=== PATIENT | male | born 1935 | race Caucasian/White ===

== ENCOUNTER 2019-10-03 06:57 | Outpatient (CLI) | payer OTHER, SELFPAY ==
[2019-10-03 07:52] LABS: Basophils Percent Auto 0.4 % (0.2-1.2); Eosinophils Absolute Auto 0.2 K/mm3 (0-0.3); Eosinophils Percent Auto 1.9 % (0-4.4); Hematocrit 26.3 % (42.0-52.0); Hemoglobin 8.5 g/dL (14.0-18.0); Immature Granulocyte Percent A 1.3 % (0-0.5); Immature Reticulocyte Fraction 28.2 % (3.0-15.9); Lymphocytes Absolute Auto 6.13 K/mm3 (0.9-3.2); Lymphocytes Percent Auto 78.9 % (18.3-44.2); Mean Corpuscular HGB Conc 32.3 g/dl (32-36); Mean Corpuscular Hemoglobin 38.8 pg (26-34); Mean Corpuscular Volume 120.1 fl (80-100); Mean Platelet Volume 11.4 fl (7.4-10.4); Monocytes Absolute Auto 0.5 K/mm3 (0.1-0.6); Monocytes Percent Auto 6.9 % (2.6-8.5); Neutrophils Absolute Auto 0.8 K/mm3 (1.3-6.7); Neutrophils Percent Auto 10.6 % (45.5-73.1); Platelet Count Result 136 k/mm3 (150-375); Red Blood Count 2.19 M/mm3 (4.6-6.20); Red Cell Distribution Width 17.9 % (11.5-14.5); Reticulocyte Hemoglobin Conten 41.3 pg (28.2-35.7); Reticulocytes Absolute 0.09 B/L (32.2-175.7); White Blood Count 7.8 K/mm3 (4.5-10.0)
[2019-10-03 08:14] LABS: Alanine Aminotransferase 13 U/L (4-50); Albumin Level 3.8 g/dL (3.5-5.1); Alkaline Phosphatase 75 U/L (38-126); Aspartate Amino Transferase 19 U/L (17-59); Bilirubin,Total 0.5 mg/dL (0.2-1.3); Blood Urea Nitrogen 13 mg/dL (9-20); Calcium 8.7 mg/dL (8.4-10.2); Carbon Dioxide 25 mmol/L (22-30); Chloride 105 mmol/L (98-107); Estimated Glomerular Filt Rate > 60; Glucose 149 mg/dL (75-110); Lactate Dehydrogenase 478 U/L (313-618); Potassium 4.2 mmol/L (3.4-5.0); Sodium 137 mmol/L (137-145)
[2019-10-03 08:45] LABS: Macrocytosis 1+ (NORMAL); Platelet Estimate Adequate (Adequate); Poikilocytosis 1+ (NORMAL)
[2019-10-03 08:46] LABS: Ovalocytes 1+ (NORMAL)
[2019-10-03 09:18] LABS: Folic Acid 19.8 ng/mL (2.76->20)
[2019-10-03 10:26] LABS: Iron 99 ug/dL (49-181); Percent Iron Saturation 34 % (20-50)
== END 2019-10-03 06:58 | disposition home or self-care (01) ==
PROVIDERS: PCP Internal Medicine; Visit Provider Internal Medicine
DX: C50.021 Malignant neoplasm of nipple and areola, right male breast (principal); E53.8 Deficiency of other specified B group vitamins
CPT/HCPCS: 36415; 80053; 82607; 82728; 82746; 83540; 83550; 83615; 85025; 85046

== ENCOUNTER 2019-11-14 06:59 | Outpatient (CLI) | payer OTHER, SELFPAY ==
[2019-11-14 07:37] LABS: Alanine Aminotransferase 12 U/L (4-50); Albumin Level 4.1 g/dL (3.5-5.1); Alkaline Phosphatase 71 U/L (38-126); Aspartate Amino Transferase 21 U/L (17-59); Bilirubin,Total 0.5 mg/dL (0.2-1.3); Blood Urea Nitrogen 17 mg/dL (9-20); Calcium 8.8 mg/dL (8.4-10.2); Carbon Dioxide 28 mmol/L (22-30); Chloride 102 mmol/L (98-107); Estimated Glomerular Filt Rate > 60; Glucose 251 mg/dL (75-110); Lactate Dehydrogenase 502 U/L (313-618); Potassium 4.5 mmol/L (3.4-5.0); Sodium 137 mmol/L (137-145)
[2019-11-14 08:15] LABS: Basophils Percent Auto 0.2 % (0.2-1.2); Eosinophils Absolute Auto 0.2 K/mm3 (0-0.3); Eosinophils Percent Auto 2.4 % (0-4.4); Hematocrit 25.6 % (42.0-52.0); Immature Granulocyte Absolute 0.15 K/mm3 (0.00-0.031); Immature Granulocyte Percent A 1.6 % (0-0.5); Lymphocytes Absolute Auto 7.15 K/mm3 (0.9-3.2); Lymphocytes Percent Auto 75.6 % (18.3-44.2); Mean Corpuscular HGB Conc 31.3 g/dl (32-36); Mean Corpuscular Hemoglobin 38.8 pg (26-34); Mean Corpuscular Volume 124.3 fl (80-100); Mean Platelet Volume 12.1 fl (7.4-10.4); Monocytes Absolute Auto 0.8 K/mm3 (0.1-0.6); Monocytes Percent Auto 8.2 % (2.6-8.5); Neutrophils Absolute Auto 1.1 K/mm3 (1.3-6.7); Platelet Count Result 151 k/mm3 (150-375); Red Blood Count 2.06 M/mm3 (4.6-6.20); Red Cell Distribution Width 18.5 % (11.5-14.5); White Blood Count 9.5 K/mm3 (4.5-10.0)
== END 2019-11-14 07:00 | disposition home or self-care (01) ==
PROVIDERS: PCP Internal Medicine; Visit Provider Internal Medicine
DX: D50.8 Other iron deficiency anemias (principal); R23.2 Flushing; C82.34 Follicular lymphoma grade IIIa, lymph nodes of axilla and upper limb
CPT/HCPCS: 36415; 80053; 83615; 85025

== ENCOUNTER 2019-12-27 13:32 | Outpatient (CLI) | payer OTHER, SELFPAY ==
--- NOTE | ~2019-12-27 | US_ITS ---
EXAMINATION: US venous doppler [facility] DATE: 12/27/2019 14:08 INDICATION: Lower limb swelling TECHNIQUE: Grayscale ultrasound images without and with compression and Doppler ultrasound images of the bilateral lower extremity veins were obtained. COMPARISON: None. FINDINGS: The visualized portions of right common femoral vein, profunda (deep) femoral vein, femoral vein, pop liteal vein, posterior tibial veins, peroneal veins, gastrocnemius vein and greater saphenous vein ou tflow are patent. The visualized portions of left common femoral vein, profunda femoral vein, femoral vein, popliteal v ein, posterior tibial veins, peroneal veins, gastrocnemius vein and greater saphenous vein outflow ar e patent. IMPRESSION: 1. No deep venous thrombosis in either lower limb. Reviewed, dictated and finalized at location A.
== END 2019-12-27 13:33 | disposition home or self-care (01) ==
PROVIDERS: PCP Internal Medicine; Visit Provider Internal Medicine
DX: R60.0 Localized edema (principal)
CPT/HCPCS: 93970

== ENCOUNTER 2020-04-21 06:50 | Inpatient (IN) | payer OTHER, SELFPAY ==
[2020-04-21] VITALS (15 sets, daily range): BP systolic 110–134; BP diastolic 52–77; PULSE 66–91; RESP 10–20; TEMP 36.1–37.1; O2SAT 93–100; BMI 26.2
--- NOTE | ~2020-04-21 | XR_ITS ---
EXAMINATION: XR surgery orthopedic DATE: 04/21/2020 11:21 INDICATION: Right wrist ORIF TECHNIQUE: 3 fluoroscopic images of the right wrist were obtained during procedure performed by Dr. Jeffrey fernandez. Radiologist was not present for the imaging or procedure. The amount of fluoroscopy time used during this procedure was 1.2 minutes. COMPARISON: None. FINDINGS: Significantly improved alignment post open reduction and internal fixation of a comminuted likely intra-articular fracture of the distal right radius which is now in near-anatomic alignment wi th volar T plate and screw fixation. The fracture of the distal ulnar metaphysis has also been reduce d to near-anatomic alignment and is fixed with a percutaneous K wire. No new fractures identified. IMPRESSION: 1. Fluoroscopy utilized during open reduction and internal fixation of distal right radial and ulnar fractures which are now in near-anatomic alignment. See procedure note for further detail. Reviewed, dictated and finalized at location A. IMPRESSION: 1. Fluoroscopy utilized during open reduction and internal fixation of distal r ight radial and ulnar fractures which are now in near-anatomic alignment. See p rocedure note for further detail.
--- NOTE | ~2020-04-21 | CT_ITS ---
EXAMINATION: CT brain wo [facility] EXAM DATE: 04/21/2020 07:36 INDICATION: Fall, head injury. TECHNIQUE: Spiral CT of the head was performed without contrast. Axial, coronal and sagittal images were reviewed. The dose-length product (DLP) for this examination was 605.33 mGy-cm. The exposure w as tailored according to patient size, and iterative reconstruction (ASIR) was used as additional dos e reduction technique. There is no prior study for comparison. FINDINGS: There is no acute intraparenchymal hemorrhage. No evidence of intraparenchymal brain mass lesion. No evidence of acute infarction. Please note that initial head CT has limited sensitivity f or small or acute infarctions. There is mild periventricular and subcortical hypodensity, nonspecific but probably related to small vessel ischemic disease. There is moderate prominence of the sulci a nd ventricles related to cerebral atrophy. There is intracranial carotid arteriosclerosis. There a re no extra-axial collections. There is no mass effect or midline shift. Patient has had bilateral ocular lens surgery. Soft tissue is unremarkable. The visualized sinuses and mastoid air cells are well aerated. IMPRESSION: 1. No acute intracranial findings. 2. Chronic age related findings. Reviewed, dictated and finalized at location A.
--- NOTE | ~2020-04-21 | XR_ITS ---
EXAMINATION: XR wrist RT min 3V EXAM DATE: 04/21/2020 07:49 INDICATION: Initial encounter following injury, with pain of the right wrist. TECHNIQUE: Right wrist frontal and lateral projections obtained and reviewed. There is no prior jeanette dy for comparison. FINDINGS: There are acute closed posttraumatic fractures of the right radial and ulnar metaphyses wit h complete posterior displacement and about 45 degrees of dorsal angulation. Mild comminution at the radial fracture site. There is overlying soft tissue swelling. IMPRESSION: Acute right radial and ulnar distal metaphyseal fractures, posterior displacement and an gulation. Reviewed, dictated and finalized at location A. IMPRESSION: Acute right radial and ulnar distal metaphyseal fractures, posteri or displacement and angulation.
--- NOTE | ~2020-04-21 | XR_ITS ---
EXAMINATION: XR chest 1V EXAM DATE: 04/21/2020 07:49 INDICATION: Fall. TECHNIQUE: Portable AP frontal chest x-ray was obtained. Comparison is made to prior examination from 06/11/2015. FINDINGS: Linear left basilar opacity appearance most consistent with atelectasis. No confluent conso lidation, pneumothorax or pleural effusion suspected. There is mild cardiomegaly. Previously seen Jami mo-Port has been removed. The bones are osteopenic. There are bony degenerative changes.. IMPRESSION: 1. Linear left basilar subsegmental atelectasis. Reviewed, dictated and finalized at location A.
--- NOTE | 2020-04-21 07:11 | ED.GENADULT ---
HPI - General Adult General Chief complaint: Extremity Injury, Upper Stated complaint: wrist injury Time Seen by Provider: 04/21/20 07:02 Source: RN notes reviewed History of Present Illness HPI narrative: Patient presents emergency department from home for a fall. Patient states he gotten up and had tripped and fell this morning. He states he had landed on his right wrist with pain in his right wrist he also states he struck his head. He denies any loss of consciousness. Patient notes deformity and pain to the right wrist. States he did take 2 Motrin for the pain this morning. He denies any fevers or chills vision changes numbness or tingling in the extremities chest pain shortness of breath or any other symptoms denies any blood thinner use Related Data Home Medications Medication Instructions Recorded Confirmed blood sugar diagnostic #10 each 07/05/19 finasteride 5 mg tablet 5 mg PO DAILY 07/05/19 04/21/20 pregabalin 150 mg capsule 150 mg PO TID 07/05/19 04/21/20 anastrozole 1 mg PO DAILY 04/21/20 04/21/20 cyanocobalamin (vitamin B-12) 1,000 mcg PO DAILY 04/21/20 04/21/20 [Vitamin B-12] Allergies Allergy/AdvReac Type Severity Reaction Status Date / Time No Known Allergies Allergy Verified 04/21/20 07:10 Review of Systems Review of Systems: Narrative: Gen.: Denies fevers or chills Eyes: Denies eye pain or visual change ENT: Denies congestion Respiratory: Denies shortness of breath or cough CV: Denies chest pain or palpitations GI: Denies abdominal pain nausea, emesis or diarrhea Musculoskeletal: See HPI Neuro: Denies numbness, tingling, weakness or focal weakness Skin: Denies rash Except as documented, all other systems reviewed and negative PMF Past Medical History Medical History Hyperlipidemia, unspecified Non-Hodgkin's lymphoma in adult Type 2 diabetes mellitus without complication Surgical History Surgical History S/P colonoscopic polypectomy Family History Family History Sibling Patient's sister is in good health Father Family history of malignant neoplasm Family history of diabetes mellitus in first degree relative Patient's father is Diabetes mellitus Mother Family history of malignant neoplasm Patient's mother is Social History Social History Smoking status: Never smoker Alcohol intake: never Gender identity (if verbalized by the patient): Male Exam Narrative: Exam Narrative: APPEARANCE: No acute distress, nontoxic, resting in bed EYES: EOMI, Marta HEENT: Normocephalic, atraumatic, OMM : Supple, nontender palpation RESPIRATORY: No respiratory distress Clear to auscultation bilaterally with no rhonchi wheezing or rales. CARDIOVASCULAR: Regular rate and rhythm without murmurs rubs or gallops. ABDOMINAL: Soft, nontender, nondistended, no rebound or guarding MUSCULOSKELETAl: Moves all extremities. The right wrist is diffusely tender to palpation with deformity radial pulse 2+, no tenderness of the right elbow or shoulder, 2 cm laceration over the palmar aspect with mild venous bleeding mild fat expulsion and the wound is deep with bone fragments seen NEURO: Awake and alert. Following commands, speech normal, no focal deficits SKIN:: Warm, dry. No rashes lesions or abrasions PSYCHIATRIC: Normal affect/mood, Course Course Emergency Course: Discussed with Dr. Diaz of orthopedic surgery recommends patient receive Ancef and gentamicin at this time will take patient to the OR for washout recommends temporary splint be placed This with patient and family plan for OR in agreement at this time Vital Signs Vital signs: Vital Signs Temperature 97 F L 04/21/20 06:51 Pulse Rate 91 04/21/20 06:51 Respiratory Rate 16
[2020-04-21] MEDS: MORPHINE SULFATE (*CRX) 2 MG/ML INJ IV PUSH (07:22)
[2020-04-21 07:36] LABS: Basophils Percent Auto 0.5 % (0.2-1.2); Eosinophils Absolute Auto 0.1 K/mm3 (0-0.3); Eosinophils Percent Auto 2.1 % (0-4.4); Hematocrit 22.9 % (42.0-52.0); Hemoglobin 7.4 g/dL (14.0-18.0); Immature Granulocyte Absolute 0.25 K/mm3 (0.00-0.031); Lymphocytes Absolute Auto 3.64 K/mm3 (0.9-3.2); Lymphocytes Percent Auto 57.9 % (18.3-44.2); Mean Corpuscular HGB Conc 32.3 g/dl (32-36); Mean Corpuscular Hemoglobin 39.4 pg (26-34); Mean Corpuscular Volume 121.8 fl (80-100); Mean Platelet Volume 12.2 fl (7.4-10.4); Monocytes Absolute Auto 0.6 K/mm3 (0.1-0.6); Monocytes Percent Auto 9.1 % (2.6-8.5); Neutrophils Absolute Auto 1.7 K/mm3 (1.3-6.7); Neutrophils Percent Auto 26.4 % (45.5-73.1); Platelet Count Result 143 k/mm3 (150-375); Red Blood Count 1.88 M/mm3 (4.6-6.20); Red Cell Distribution Width 19.5 % (11.5-14.5); White Blood Count 6.3 K/mm3 (4.5-10.0)
[2020-04-21 07:43] LABS: Alanine Aminotransferase 12 U/L (4-50); Albumin Level 4.2 g/dL (3.5-5.1); Alkaline Phosphatase 65 U/L (38-126); Anion Gap 8 mmol/L (8-16); Aspartate Amino Transferase 34 U/L (17-59); Bilirubin,Total 0.8 mg/dL (0.2-1.3); Blood Urea Nitrogen 16 mg/dL (9-20); Calcium 8.8 mg/dL (8.4-10.2); Carbon Dioxide 29 mmol/L (22-30); Chloride 102 mmol/L (98-107); Estimated Glomerular Filt Rate > 60; Glucose 210 mg/dL (75-110); Potassium 4.5 mmol/L (3.4-5.0); Sodium 139 mmol/L (137-145)
[2020-04-21 07:47] LABS: Prothrombin Time 13.2 Seconds (11.1-14.7)
[2020-04-21 07:48] LABS: Partial Thromboplastin Time 29.6 SECONDS (22.3-36.8)
[2020-04-21] MEDS: MORPHINE SULFATE (*CRX) 4 MG/ML INJ 2 MG IV PUSH (08:24)
[2020-04-21] MEDS: SODIUM CHLORIDE 0.9% IV 1,000 ML 999 ML IV CONT (08:25)
[2020-04-21] MEDS: ceFAZolin 2 GM/D5W 50 ML 2 GM/50 ML BAG IVPB (08:37)
--- NOTE | 2020-04-21 09:07 | WPDANESEPP ---
Anes - Eval Pre Procedure Procedure: Operation Date: 04/21/20 09:00 Proposed Procedures p ORIF Wrist Radius Ulna Fracture(Right) - Kaleb Diaz MD Date/Time: 04/21/20 09:07 Pre Op Diagnosis: open distal radius fx Patient Data Age: 84 Gender: M Height: Weight: 80 kg Last Vital Signs Temp 36.1 C L 04/21/20 06:51 Pulse 66 04/21/20 08:31 Resp 20 04/21/20 08:31 BP 134/77 04/21/20 08:31 Pulse Ox 100 04/21/20 08:31 Allergies Allergy/AdvReac Type Severity Reaction Status Date / Time No Known Allergies Allergy Verified 04/21/20 07:10 Home Medications Medication Instructions Recorded Confirmed Type blood sugar diagnostic #10 each 07/05/19 History finasteride 5 mg tablet 5 mg PO DAILY 07/05/19 04/21/20 History pregabalin 150 mg capsule 150 mg PO TID 07/05/19 04/21/20 History pravastatin 40 mg tablet 40 mg PO DAILY #90 tablet 10/28/19 04/21/20 Rx blood sugar diagnostic See Rx Instructions .ROUTE 01/12/20 04/21/20 Rx .COMPLEX #100 strip glipizide 5 mg tablet 5 mg PO DAILY #90 tablet 01/30/20 04/21/20 Rx lancets See Rx Instructions .ROUTE 01/30/20 04/21/20 Rx .COMPLEX #100 each metformin 500 mg tablet 1,000 mg PO BID #360 tablet 01/30/20 04/21/20 Rx hydrocodone 10 mg-acetaminophen 1 tablet PO QID PRN #120 tablet 04/19/20 04/21/20 Rx 325 mg tablet anastrozole 1 mg PO DAILY 04/21/20 04/21/20 History cyanocobalamin (vitamin B-12) 1,000 mcg PO DAILY 04/21/20 04/21/20 History [Vitamin B-12] Laboratory Tests 04/21/20 04/21/20 04/21/20 07:17 07:17 07:17 WBC 6.3 K/mm3 K/mm3 (4.5-10.0) RBC 1.88 M/mm3 L M/mm3 (4.6-6.20) Hgb 7.4 g/dL L g/dL (14.0-18.0) Hct 22.9 % L % (42.0-52.0) MCV 121.8 fl H fl (80-100) MCH 39.4 pg H pg (26-34) MCHC 32.3 g/dl g/dl (32-36) RDW 19.5 % H % (11.5-14.5) Plt Count 143 k/mm3 L k/mm3 (150-375) MPV 12.2 fl H fl (7.4-10.4) Immature Gran % (Auto) 4.0 % H % (0-0.5) Neut % (Auto) 26.4 % L % (45.5-73.1) Lymph % (Auto) 57.9 % H % (18.3-44.2) [place] % (Auto) 9.1 % H % (2.6-8.5) Eos % (Auto) 2.1 % % (0-4.4) Baso % (Auto) 0.5 % % (0.2-1.2) Lymph # (Auto) 3.64 K/mm3 H K/mm3 (0.9-3.2) [place] # (Auto) 0.6 K/mm3 K/mm3 (0.1-0.6) Eos # (Auto) 0.1 K/mm3 K/mm3 (0-0.3) Baso # (Auto) 0.0 K/mm3 K/mm3 (0.0-0.1) Abs Immat Gran (auto) 0.25 K/mm3 H K/mm3 (0.00-0.031) Absolute Neuts (auto) 1.7 K/mm3 K/mm3 (1.3-6.7) Absolute Nucleated RBC 0.0 K/mm3 K/mm3 (0.0-0.012) Nucleated RBC % 0.0 % % (0.0-0.2) PT 13.2 Seconds Seconds (11.1-14.7) INR 1.0 APTT 29.6 SECONDS SECONDS (22.3-36.8) Sodium 139 mmol/L mmol/L (137-145) Potassium 4.5 mmol/L mmol/L (3.4-5.0) Chloride 102 mmol/L mmol/L (98-107) Carbon Dioxide 29 mmol/L mmol/L (22-30) Anion Gap 8 mmol/L mmol/L (8-16) BUN 16 mg/dL mg/dL (9-20) Creatinine 0.50 mg/dL L mg/dL (0.7-1.3) Estim Creat Clear Calc Not Reportable Estimated GFR > 60 (59 - ) Glucose 210 mg/dL H mg/dL (75-110) Calcium 8.8 mg/dL mg/dL (8.4-10.2) Total Bilirubin 0.8 mg/dL mg/dL (0.2-1.3) AST 34 U/L U/L (17-59) ALT 12 U/L U/L (4-50) Alkaline Phosphatase 65 U/L U/L (38-126) Total Protein 6.0 g/dL L g/dL (6.3-8.2) Albumin 4.2 g/dL g/dL (3.5-5.1) Blood Type Antibody Screen 04/21/20 07:17 WBC RBC Hgb Hct MCV MCH MCHC RDW Plt Count MPV Immature Gran % (Auto) Neut % (Auto) Lymph % (Auto) [place] % (Auto) Eos % (Auto) Baso % (Auto) L
[2020-04-21] MEDS: GENTAMICIN SULFATE INJ 160 MG in DEXTROSE 5% 100 ML 100 MG IVPB (09:23)
--- NOTE | 2020-04-21 09:28 | PM.CNOR ---
Assessment and Plan Assessment and plan (1) Open fracture of forearm, type I or II: Qualifiers: Encounter type: initial encounter Laterality: right Qualified Code(s): S52.91XB - Unspecified fracture of right forearm, initial encounter for open fracture type I or II Code(s): S52.90XB - Unspecified fracture of unspecified forearm, initial encounter for open fracture type I or II Status: Acute Assessment and Plan: Patient presented to the emergency room with family after a fall and right distal forearm/wrist injury. Noted to have open fracture of the distal radius and ulna with 100% displacement. Hand and fingers neurovascularly intact. Patient given antibiotics. Head CT done for history of head trauma. Patient now brought urgently to the operating room for treatment of his open fracture. Injury occurred approximately 3 hours ago. Operative and non operative treatment options with the risks, benefits and alternatives of treatment discussed in detail with the patient. He is alert and oriented. He answers questions and ask questions appropriately. He verbalizes understanding and wishes to proceed with treatment for his right wrist. He will need to be admitted afterward for a course of intravenous antibiotics and for further stabilization and medical management. Discussed nonoperative and operative treatment options with the patient. Risks and benefits of each as well as alternatives were reviewed. All of the patient's questions were answered. The risks of surgery reviewed including but not limited to: Neurovascular damage, wound complication, infection, blood clot, pulmonary embolus, stroke, myocardial infarction, and anesthetic risks up to and including . Continued pain and possible dysfunction were explained. Specific risks of the procedure including later recurrence of deformity. No guarantees were offered. If hardware used, discussed risk of failure/ breakage and possible need for removal. If complications occur, the patient understands the need for further treatment, possible further surgery. Patient verbalizes understanding and wishes to proceed. PLAN: Right wrist debridement of open fracture, reduction and internal fixation. (2) Type 2 diabetes mellitus without complication: Qualifiers: Diabetes mellitus termite helper insulin use: without termite helper use Qualified Code(s): E11.9 - Type 2 diabetes mellitus without complications Code(s): E11.9 - Type 2 diabetes mellitus without complications Status: Acute (3) Non-Hodgkin's lymphoma in adult: Code(s): C85.90 - Non-Hodgkin lymphoma, unspecified, unspecified site Status: Acute History of Present Illness HPI Consult date: 04/21/20 Requesting physician: Fabio Nesbitt DO Consult reason: fracture Chief complaint: open distal radius fx Narrative: 84-year-old gentleman was at home this morning getting up and getting dressed when he lost his balance and fell with his right outstretched hand. Noted obvious deformity and bleeding of the wrist. Also trauma to the head but no loss of consciousness. Denies neck or back pain or injury. Complains of right wrist pain. Noted to have open fracture in emergency room. He is now brought urgently to the operating room for further treatment. He received intravenous Ancef in the emergency room, 2 g. A sterile dressing and splint was applied. Review of Systems Constitutional: Constitutional: Denies fever(s) Eyes: Eyes: Denies blurry vision ENT: Reports Normal hearing present Cardiovascular: Cardiovascular: Denies chest pain and Denies dyspnea Respiratory: Respiratory: Denies dyspnea and Denies wheezing Gastrointestinal: Gastrointestinal: Denies abdominal pain Genitourinary: Genitourinary: Denies urinary urgency Musculoskeletal: Musculoskeletal: Reports as per HPI and Denies numbness Integumentary/Breasts: Skin/Breast: Denies changing lesions and Denies sores Neurolog
--- NOTE | 2020-04-21 09:29 | P.PNAN_ITS ---
Anes - Eval Final PreProcedure Day of Procedure 04/21/20 09:29 Patient weight: overweight Heart: regular rate and rhythm Lungs: clear to auscultation and normal air movement Airway: Mallampati scale class II Neurological: alert and oriented Last oral intake: >/= 8 hours ASA classification: II Emergent: yes Anesthetic plan: proceed Anesthesia type and monitoring: general Informed Consent: The patient's anesthetic plan and its attendant risks and b enefits were discussed with the patient/family/POA. Questions were solicited and answers provided to the satisfaction of the patient/family/POA.
--- NOTE | 2020-04-21 09:36 | WPDHPUPDATE1 ---
History and Physical Update Update Date/Time: 04/21/20 09:36 History and Physical has been reviewed, including an updated exam of the patient. There are NO changes in the patient's condition. Risks, benefits, and alternatives have been discussed and questions answered. Patient agrees to proceed with procedure. Proceeding emergently to the operating room for treatment of right open forearm/wrist fracture.
[2020-04-21] MEDS: LACTATED RINGERS 1,000 ML 30 ML IV CONT (09:45)
--- NOTE | 2020-04-21 11:30 | SUR.OPER ---
Ebl=20ml
[2020-04-21 11:45] LABS: Glucose Point of Care 178 (65-105)
--- NOTE | 2020-04-21 11:53 | PM.PROC ---
Procedure Note - Detailed Date of procedure: 04/21/20 Pre-op diagnosis: open distal radius fx Right open distal radius fracture Post-op diagnosis: same Procedure performed: debridement of open fracture, open reduction internal fixation right distal radius fracture including fixation of more than 3 fragments. Description of procedure: Indications: Patient is a 84-year-old man who fell onto right outstretched hand and sustained a Grade 2A open distal radius and ulna fracture with intra-articular extension and comminution. Fracture has displacement and angulation, unacceptable alignment. The patient presents for emergent operative treatment. Full discussion of risks, benefits and alternatives had with the patient. Patient verbalized understanding and wishes to proceed. What was done: After informed consent the operative extremity was marked in the preoperative holding area. Patient received intravenous antibiotics. Patient taken to the operating room where they underwent general anesthesia. Positioned supine on operating table. Time-out performed confirming the patient, patient's site of surgery and the plan. Right upper extremity prepped and draped in the usual sterile surgical fashion using a Betadine prep solution. Hand and wrist exsanguinated and arm tourniquet inflated to 225 mmHg. the open skin laceration was over the volar ulnar side measured 1.8 cm x 1 cm. There was exposed flexor carpi ulnaris tendon. No other gross contamination noted. No pulsatile bleeding. Fifteen blade knife and pickups used to remove any loose 3rd vitalized tissue and any debris from the wound. Wound then thoroughly irrigated with solution. Subcutaneous tissue repaired with 3 0 Monocryl interrupted suture and skin repaired with 4 nylon interrupted suture. Fixation of the radius was then performed as the fracture was unstable and the open portion of the fracture did not involve the radius. Standard volar flexor carpi radialis incision utilized. Fifteen blade knife used to make longitudinal incision. Flexor carpi radialis tendon identified tendon sheath incised in line with skin incision. Tendon retracted to protect the neurovascular elements. Floor of the tendon sheath incised with a 15 blade knife. Flexor pollicis retracted medial. pronator quadratus then divided off the watershed line and reflected ulnarward to expose the distal radius and the fracture. Fracture was then reduced provisionally pinned. Image intensification confirm reduction. Fixation achieved with the distal radius volar plate. This was provisionally pinned into place and confirmed with image intensification. Fixation to the proximal fragment with a 3.5 mm screw. Distal fracture fixation achieved with 2.0 mm locking pegs and 2.0 mm fully threaded locking screws for the radial styloid. Fixation was then completed proximally with the remaining 3.5 mm screws. The ulna fracture was then stabilized with a 0.062 in K-wire placed in intramedullary retrograde fashion. Final reduction of the fracture, alignment of the wrist joint and placement of the hardware verified with image intensification. Wound thoroughly irrigated with antibiotic solution. Pronator repaired with 3 0 Monocryl interrupted suture. Skin closed with interrupted subcutaneous 000 Monocryl interrupted suture and running 000 Monocryl subcuticular stitch. Local anesthetic with 0.5% Marcaine. Sterile dressing applied. Padded dressing and splint then applied. Tourniquet released and good capillary refill noted in the fingers and thumb. Patient awoke from anesthesia, extubated and taken to the recovery room in stable condition. All sponge and instrument counts correct at the end of case. Implants: Biomet distal radius volar locking plate with 2.0 mm smooth pegs and 3.5 mm fully-threaded screws. 0.062 in K-wire Anesthesia: GLMA Surgeon: Kaleb Diaz MD Field Health Officer: 1st graduate assistant Estimated blood loss (mL): 20 Tourniquet time (min): 65 Drains
--- NOTE | 2020-04-21 12:19 | SUR.PHASEI ---
[id number] sbar faxed floor notified
--- NOTE | 2020-04-21 13:00 | ADMGEN ---
This patient, Otis Morales, was admitted to 2 Medical Room 240-. Patient/family oriented to hospital policies and general routines including ID bracelet, bed and alarms, visiting hours, pain management, procedures, bathroom and other care routines, personal items, smoking policy, room service/diet, and visiting hours. Valuables list has been completed. Information on how to activate the Rapid Response Team has been discussed. Patient/Family are encouraged to report perceived risks to care and to ask questions if they do not understand what they are told or what they should do.
[2020-04-21] MEDS: MORPHINE SULFATE (*CRX) 4 MG/ML INJ 3 MG IV PUSH ×2 (13:24→18:15)
[2020-04-21 13:32] LABS: Basophils Percent Auto 0.2 % (0.2-1.2); Immature Granulocyte Absolute 0.34 K/mm3 (0.00-0.031); Immature Granulocyte Percent A 6.6 % (0-0.5); Lymphocytes Absolute Auto 1.97 K/mm3 (0.9-3.2); Mean Corpuscular HGB Conc 32.5 g/dl (32-36); Mean Corpuscular Hemoglobin 39.5 pg (26-34); Mean Corpuscular Volume 121.5 fl (80-100); Mean Platelet Volume 11.3 fl (7.4-10.4); Monocytes Absolute Auto 0.1 K/mm3 (0.1-0.6); Monocytes Percent Auto 1.9 % (2.6-8.5); Neutrophils Absolute Auto 2.8 K/mm3 (1.3-6.7); Neutrophils Percent Auto 53.3 % (45.5-73.1); Platelet Count Result 120 k/mm3 (150-375); Red Blood Count 1.72 M/mm3 (4.6-6.20); Red Cell Distribution Width 19.3 % (11.5-14.5); White Blood Count 5.2 K/mm3 (4.5-10.0)
[2020-04-21 13:43] LABS: Anion Gap 5 mmol/L (8-16); Blood Urea Nitrogen 14 mg/dL (9-20); Calcium 8.3 mg/dL (8.4-10.2); Carbon Dioxide 27 mmol/L (22-30); Chloride 104 mmol/L (98-107); Estimated Glomerular Filt Rate > 60; Glucose 197 mg/dL (75-110); Potassium 4.6 mmol/L (3.4-5.0); Sodium 136 mmol/L (137-145)
[2020-04-21 13:52] LABS: Hemoglobin 6.8 g/dL (14.0-18.0)
[2020-04-21 13:53] LABS: Hematocrit 20.9 % (42.0-52.0)
[2020-04-21 13:55] LABS: Hypochromasia 1+ (NORMAL); Ovalocytes 1+ (NORMAL); Platelet Estimate Adequate (Adequate); Poikilocytosis 1+ (NORMAL)
[2020-04-21] MEDS: KCL 20MEQ/0.9% SOD CHL 1,000 ML 80 ML IV CONT (14:22)
[2020-04-21] MEDS: PRAVASTATIN SODIUM 20 MG TABLET 40 MG PO (14:28)
[2020-04-21] MEDS: FINASTERIDE 5 MG TABLET PO (14:28)
[2020-04-21] MEDS: ANASTROZOLE (*CHEMO) 1 MG TABLET PO (14:28)
[2020-04-21] MEDS: CYANOCOBALAMIN 1,000 MCG TABLET 1000 MCG PO (14:28)
[2020-04-21] MEDS: IBUPROFEN IV 400 MG in SODIUM CHLORIDE 0.9% IV 100 ML 200 MG IVPB (14:29)
[2020-04-21 14:31] LABS: Glucose Point of Care 194 (65-105)
[2020-04-21] MEDS: PREGABALIN (*CRX) 75 MG CAPSULE 150 MG PO ×2 (14:34→18:07)
[2020-04-21] MEDS: ONDANSETRON INJ 4 MG/2 ML VIAL IV PUSH (14:35)
[2020-04-21 16:18] LABS: Glucose Point of Care 196 (65-105)
[2020-04-21] MEDS: HYDROcodone/acetaminophen (*CRX) 10-325 MG TABLET 1 TAB PO ×2 (16:26→21:09)
[2020-04-21] MEDS: metFORMIN HCL 500 MG TABLET 1000 MG PO (18:07)
[2020-04-21] MEDS: FAMOTIDINE 20 MG TABLET PO (20:10)
[2020-04-21 20:44] LABS: Glucose Point of Care 199 (65-105)
[2020-04-22] VITALS (15 sets, daily range): BP systolic 101–139; BP diastolic 45–64; PULSE 59–89; RESP 16–20; TEMP 36.3–37.7; O2SAT 94–100
[2020-04-22] MEDS: KCL 20MEQ/0.9% SOD CHL 1,000 ML 80 ML IV CONT (04:30)
[2020-04-22 05:27] LABS: Basophils Percent Auto 0.2 % (0.2-1.2); Eosinophils Percent Auto 0.2 % (0-4.4); Immature Granulocyte Absolute 0.15 K/mm3 (0.00-0.031); Immature Granulocyte Percent A 1.3 % (0-0.5); Lymphocytes Absolute Auto 9.11 K/mm3 (0.9-3.2); Mean Corpuscular HGB Conc 31.9 g/dl (32-36); Mean Corpuscular Hemoglobin 39.1 pg (26-34); Mean Corpuscular Volume 122.5 fl (80-100); Monocytes Absolute Auto 0.8 K/mm3 (0.1-0.6); Monocytes Percent Auto 6.6 % (2.6-8.5); Neutrophils Absolute Auto 1.8 K/mm3 (1.3-6.7); Neutrophils Percent Auto 14.7 % (45.5-73.1); Platelet Count Result 113 k/mm3 (150-375); Red Blood Count 1.51 M/mm3 (4.6-6.20); Red Cell Distribution Width 19.4 % (11.5-14.5); White Blood Count 11.8 K/mm3 (4.5-10.0)
[2020-04-22 05:44] LABS: Anion Gap 3 mmol/L (8-16); Blood Urea Nitrogen 11 mg/dL (9-20); Calcium 8.1 mg/dL (8.4-10.2); Carbon Dioxide 28 mmol/L (22-30); Chloride 107 mmol/L (98-107); Estimated CRCL calculation 74 ml/min; Estimated Glomerular Filt Rate > 60; Glucose 134 mg/dL (75-110); Potassium 4.4 mmol/L (3.4-5.0); Sodium 138 mmol/L (137-145)
[2020-04-22 06:04] LABS: Hematocrit 18.5 % (42.0-52.0); Hemoglobin 5.9 g/dL (14.0-18.0)
[2020-04-22 06:05] LABS: Large Platelets Present
[2020-04-22 06:06] LABS: Atypical Lymphocytes Present; Hypochromasia 1+ (NORMAL); Ovalocytes 1+ (NORMAL)
[2020-04-22 07:26] LABS: Glucose Point of Care 135 (65-105)
[2020-04-22] MEDS: glipiZIDE 5 MG TABLET PO (08:07)
[2020-04-22] MEDS: DOCUSATE SODIUM 100 MG CAPSULE PO ×2 (08:08→16:52)
[2020-04-22] MEDS: CYANOCOBALAMIN 1,000 MCG TABLET 1000 MCG PO (08:08)
[2020-04-22] MEDS: metFORMIN HCL 500 MG TABLET 1000 MG PO ×2 (08:08→16:52)
[2020-04-22] MEDS: FAMOTIDINE 20 MG TABLET PO ×2 (08:08→20:34)
[2020-04-22] MEDS: ANASTROZOLE (*CHEMO) 1 MG TABLET PO (08:08)
[2020-04-22] MEDS: FINASTERIDE 5 MG TABLET PO (08:08)
[2020-04-22] MEDS: PRAVASTATIN SODIUM 20 MG TABLET 40 MG PO (08:09)
[2020-04-22] MEDS: HYDROcodone/acetaminophen (*CRX) 10-325 MG TABLET 1 TAB PO ×3 (08:09→20:36)
[2020-04-22] MEDS: PREGABALIN (*CRX) 75 MG CAPSULE 150 MG PO ×3 (08:23→16:52)
[2020-04-22] MEDS: GENTAMICIN SULFATE INJ 160 MG in DEXTROSE 5% 100 ML 100 MG IVPB (08:54)
--- NOTE | 2020-04-22 09:16 | PM.PNORT ---
Progress Note: A&P Assessment and Plan (1) Open fracture of right distal radius: Qualifiers: Encounter type: subsequent encounter Open fracture type: open type I or II Fracture morphology: other intra-articular Fracture healing: with routine healing Qualified Code(s): S52.571E - Other intraarticular fracture of lower end of right radius, subsequent encounter for open fracture type I or II with routine healing Code(s): S52.501B - Unspecified fracture of the lower end of right radius, initial encounter for open fracture type I or II Status: Acute Assessment and Plan: Postoperative day 1. Status post debridement with internal fixation right distal radius. Pain fairly well controlled. Upper extremity neurovascular intact. Mild swelling. Continue intravenous antibiotics today. Continue with pain control and edema control. Possible discharge tomorrow if stable. 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 2 units packed red blood cell replacement today. Will check labs. 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 Garcia. Appreciate any further treatment which may be needed. Subjective Subjective Date/Time Seen: 04/22/20 09:16 Patient awake and alert. Complains of some mild to moderate pain right wrist. Feels a little bit washed out . Exam Const: General: healthy appearing; No in distress or confusion Orientation/consciousness: oriented to person, oriented to place, oriented to time and No confusion HENMT: Head: normal to inspection, normocephalic and atraumatic Eyes: Conjunctivae: conjunctivae normal Sclera: sclerae normal Neck: Neck: supple and nontender Resp: Effort & Inspection: normal respiratory effort and no audible wheezes Cardio: Rate: regular rate Rhythm: regular rhythm Skin: General skin exam: no rashes or lesions noted Neuro: General: oriented to person, oriented to place, oriented to time and No confusion Extrem: Right upper extremity: normal to inspection, shoulder/upper arm normal to inspection; no tenderness and no swelling, elbow/forearm ( Short-arm splint in place, clean dry and intact), wrist other ( Splint in place.) and Extremity exam: right hand neurosensory exam normal radial nerve sensory function normal, ulnar nerve sensory function normal, median nerve sensory function normal and digital nerve sensory function normal and vascular exam normal capillary refill Left upper extremity: normal to inspection, shoulder/upper arm, elbow/forearm, wrist normal to inspection; no tenderness and no swelling and hand normal to inspection, normal capillary refill, neuromotor exam normal, neurosensory exam normal and normal ROM of fingers
--- NOTE | 2020-04-22 09:42 | WPDANESPN ---
Anes - Prog Note Post-Op Date/Time: 04/22/20 09:42 Cardiovascular status: normal Respiratory status: normal Airway patency: baseline Mental status: baseline Post-Op hydration status: normal Vital Signs: Last Vital Signs Temp 36.7 C 04/22/20 06:00 Pulse 80 04/22/20 06:00 Resp 20 04/22/20 06:00 BP 103/59 L 04/22/20 06:00 Pulse Ox 96 04/22/20 06:00 Pain Score (VAS): Patient stated pain 7/10 on self reported pain scale prior to PRN pain meds, 5/10 following PRN pain meds. Patient resting in bed at time of assessment. RN noted that 2 units PRBCs ordered for HGB of 5.9 this AM. No additional issues or concerns addressed by patient at time of assessment. I/O: Intake & Output 04/21/20 04/22/20 04/22/20 23:59 07:59 15:59 Intake Total 330 1265 290 Output Total 450 300 300 Balance -120 965 -10 Laboratory Tests 04/22/20 04:45 04/22/20 04:45 04/21/20 04/21/20 04/21/20 07:17 11:43 13:19 WBC 5.2 RBC 1.72 L Hgb 6.8 L* Hct 20.9 L* MCV 121.5 H MCH 39.5 H MCHC 32.5 RDW 19.3 H Plt Count 120 L MPV 11.3 H Immature Gran % (Auto) 6.6 H Neut % (Auto) 53.3 Lymph % (Auto) 38.0 Bradford % (Auto) 1.9 L Eos % (Auto) 0.0 Baso % (Auto) 0.2 Lymph # (Auto) 1.97 Bradford # (Auto) 0.1 Eos # (Auto) 0.0 Baso # (Auto) 0.0 Abs Immat Gran (auto) 0.34 H Absolute Neuts (auto) 2.8 Absolute Nucleated RBC 0.0 Nucleated RBC % 0.0 Atypical Lymphocytes Platelet Estimate Adequate Large Platelets Hypochromasia 1+ Poikilocytosis 1+ Ovalocytes 1+ Sodium Potassium Chloride Carbon Dioxide Anion Gap BUN Creatinine Estim Creat Clear Calc Estimated GFR Glucose POC Capillary Glucose 178 H Calcium Blood Type O Positive Antibody Screen Negative Crossmatch See Detail 04/21/20 04/21/20 04/21/20 13:19 14:28 16:15 WBC RBC Hgb Hct MCV MCH MCHC RDW Plt Count MPV Immature Gran % (Auto) Neut % (Auto) Lymph % (Auto) Bradford % (Auto) Eos % (Auto) Baso % (Auto) Lymph # (Auto) Bradford # (Auto) Eos # (Auto) Baso # (Auto) Abs Immat Gran (auto) Absolute Neuts (auto) Absolute Nucleated RBC Nucleated RBC % Atypical Lymphocytes Platelet Estimate Large Platelets Hypochromasia Poikilocytosis Ovalocytes Sodium 136 L Potassium 4.6 Chloride 104 Carbon Dioxide 27 Anion Gap 5 L BUN 14 Creatinine 0.50 L Estim Creat Clear Calc Not Reportable Estimated GFR > 60 Glucose 197 H POC Capillary Glucose 194 H 196 H Calcium 8.3 L Blood Type Antibody Screen Crossmatch 04/21/20 04/22/20 04/22/20 20:13 04:45 04:45 WBC 11.8 H RBC 1.51 L Hgb 5.9 L* Hct 18.5 L* MCV 122.5 H MCH 39.1 H MCHC 31.9 L RDW 19.4 H Plt Count 113 L MPV 12.0 H Immature Gran % (Auto) 1.3 H Neut % (Auto) 14.7 L Lymph % (Auto) 77.0 H Bradford % (Auto) 6.6 Eos % (Auto) 0.2 Baso % (Auto) 0.2 Lymph # (Auto) 9.11 H Bradford # (Auto) 0.8 H Eos # (Auto) 0.0 Baso # (Auto) 0.0 Abs Immat Gran (auto) 0.15 H Absolute Neuts (auto) 1.8 Absolute Nucleated RBC 0.0 Nucleated RBC % 0.0 Atypical Lymphocytes Present Platelet Estimate Slightly decreased Large Platelets Present Hypochromasia 1+ Poikilocytosis Ovalocytes 1+ Sodium 138 Potassium 4.4 Chloride 107 Carbon Dioxide 28 Anion Gap 3 L BUN 11 Creatinine 0.60 L Estim Creat Clear Calc 74 Estimated GFR > 60 Glucose 134 H POC Capillary Glucose 199 H Calcium 8.1 L Blood Type Antibody Screen Crossmatch 04/22/20 07:22 WBC RBC Hgb Hct MCV MCH MCHC RDW Plt Count MPV Immature Gran % (Auto) Neut % (Auto) Lymph % (Auto) Bradford % (Auto) Eos % (Auto) Baso % (Auto) Lymph # (Auto) Bradford # (Auto) Eo
[2020-04-22] MEDS: SODIUM CHLORIDE 0.9% IV 250 ML 30 ML IV CONT (10:20)
[2020-04-22 11:16] LABS: Glucose Point of Care 177 (65-105)
[2020-04-22] MEDS: MORPHINE SULFATE (*CRX) 4 MG/ML INJ 3 MG IV PUSH (14:35)
[2020-04-22 16:25] LABS: Glucose Point of Care 129 (65-105)
[2020-04-22 20:52] LABS: Glucose Point of Care 142 (65-105)
[2020-04-23 05:31] VITALS: BP 144/48; PULSE 70; RESP 16; TEMP 37.1; O2SAT 95
[2020-04-23 06:40] LABS: Basophils Percent Auto 0.2 % (0.2-1.2); Eosinophils Percent Auto 0.2 % (0-4.4); Hematocrit 25.8 % (42.0-52.0); Hemoglobin 8.4 g/dL (14.0-18.0); Immature Granulocyte Absolute 0.24 K/mm3 (0.00-0.031); Immature Granulocyte Percent A 2.9 % (0-0.5); Immature Platelet Fraction Pct 7.5 % (0.9-11.2); Lymphocytes Absolute Auto 4.96 K/mm3 (0.9-3.2); Lymphocytes Percent Auto 60.8 % (18.3-44.2); Mean Corpuscular HGB Conc 32.6 g/dl (32-36); Mean Corpuscular Hemoglobin 35.7 pg (26-34); Mean Corpuscular Volume 109.8 fl (80-100); Mean Platelet Volume 11.4 fl (7.4-10.4); Monocytes Absolute Auto 0.8 K/mm3 (0.1-0.6); Monocytes Percent Auto 9.8 % (2.6-8.5); Neutrophils Absolute Auto 2.1 K/mm3 (1.3-6.7); Neutrophils Percent Auto 26.1 % (45.5-73.1); Platelet Count Result 133 k/mm3 (150-375); Red Blood Count 2.35 M/mm3 (4.6-6.20); Red Cell Distribution Width 25.6 % (11.5-14.5); White Blood Count 8.2 K/mm3 (4.5-10.0)
[2020-04-23 06:50] LABS: Anion Gap 7 mmol/L (8-16); Blood Urea Nitrogen 10 mg/dL (9-20); Calcium 8.7 mg/dL (8.4-10.2); Carbon Dioxide 26 mmol/L (22-30); Chloride 103 mmol/L (98-107); Estimated CRCL calculation 74 ml/min; Estimated Glomerular Filt Rate > 60; Glucose 163 mg/dL (75-110); Potassium 3.9 mmol/L (3.4-5.0); Sodium 136 mmol/L (137-145)
[2020-04-23 07:39] LABS: Glucose Point of Care 171 (65-105)
[2020-04-23] MEDS: ANASTROZOLE (*CHEMO) 1 MG TABLET PO (08:03)
[2020-04-23] MEDS: CYANOCOBALAMIN 1,000 MCG TABLET 1000 MCG PO (08:03)
[2020-04-23] MEDS: FAMOTIDINE 20 MG TABLET PO (08:03)
[2020-04-23] MEDS: glipiZIDE 5 MG TABLET PO (08:03)
[2020-04-23] MEDS: PREGABALIN (*CRX) 75 MG CAPSULE 150 MG PO (08:03)
[2020-04-23] MEDS: PRAVASTATIN SODIUM 20 MG TABLET 40 MG PO (08:04)
[2020-04-23] MEDS: metFORMIN HCL 500 MG TABLET 1000 MG PO (08:04)
[2020-04-23] MEDS: FINASTERIDE 5 MG TABLET PO (08:04)
--- NOTE | 2020-04-23 09:53 | PDRADONCCN ---
Recommendations 1. There do not appear to be any urgent oncology needs. He will follow-up with me in November 2020 or sooner as needed. 2. Continue follow-up with Dr. Seun Lyman per his office schedule. 3. Continue follow-up with primary care and other physicians. 4. Continue pain medications as currently managed by ortho. Impression 84 y.o. male with a recurrent right breast cancer. 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 He underwent R-CHOP chemotherapy and has been on maintenance Rituxan as well as Tamoxifen. Despite this, he developed a 6 mm recurrence of breast cancer in his mastectomy scar. He is status post excisional biopsy and re-excision ultimately with negative margins. He completed a course of radiation therapy between 01/21/2017 and 03/06/2017 and has no evidence of further recurrence of disease. He was admitted to the hospital after a fall recently, status post ORIF of right distal radius. [facility] - Date/Time Seen 04/23/20 09:53 - Identifying Data Otis Ritchie is a 84 y.o. male with a recurrent right breast cancer. 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 He underwent R-CHOP chemotherapy and has been on maintenance Rituxan as well as Tamoxifen. Despite this, he developed a 6 mm recurrence of breast cancer in his mastectomy scar. He is status post excisional biopsy and re-excision ultimately with negative margins. He completed a course of radiation therapy between 01/21/2017 and 03/06/2017. He was admitted to the hospital after a fall recently which required an internal fixation of the right distal radius. Inpatient consultation was requested. - History of Present Illness Mr. Ritchie is well known to me for having undergone postmastectomy radiation therapy 3 years ago for breast cancer. On 04/21/2020, he presented to the emergency room with family after a fall and right distal forearm/wrist injury. He was noted to have an open fracture of the distal radius and ulna with 100% displacement. Orthopedic surgery consult reported a Grade 2A open distal radius and ulna fracture with intra-articular extension and comminution. Due to the displacement and angulation with unacceptable alignment, he underwent emergent open reduction and internal fixation. He is recovering well without complications. He does report 8 out of 10 pain this morning. Regarding his oncology needs, he was last seen by me via telemedicine visit on 12/08/2019 at which time he was felt to be without evidence of recurrent disease 2 years 9 months since completing radiotherapy. He is taking endocrine therapy and Effexor (hot flashes) per Dr. Seun Lyman with whom he is also following. Of note, he has chronic pain related to previous shingles on his back (post-herpetic neuralgia). He is also followed for his follicular lymphoma. - Medical History Medical History (Last Updated 04/21/20 @ 09:33 by Kaleb Diaz MD) Hyperlipidemia, unspecified Non-Hodgkin's lymphoma in adult Open fracture of forearm, type I or II Type 2 diabetes mellitus without complication - Surgical History Surgical History (Last Reviewed 04/21/20 @ 09:30 by Kaleb Diaz MD) S/P colonoscopic polypectomy - Family History Family History (Last Reviewed 04/21/20 @ 14:12 by Jocelyn Sánchez RN) Sibling Patient's sister is in good heal
--- NOTE | 2020-04-23 10:08 | PM.PNORT ---
Progress Note: A&P Assessment and Plan (1) Open fracture of right distal radius: Qualifiers: Encounter type: subsequent encounter Fracture healing: with routine healing Fracture morphology: other intra-articular Open fracture type: open type I or II Qualified Code(s): S52.571E - Other intraarticular fracture of lower end of right radius, subsequent encounter for open fracture type I or II with routine healing Code(s): S52.501B - Unspecified fracture of the lower end of right radius, initial encounter for open fracture type I or II Status: Acute Assessment and Plan: Postoperative day 2. Status post debridement with internal fixation right distal radius. Pain fairly well controlled. Upper extremity neurovascular intact. Mild swelling. Finish antibiotics today. Continue with pain control and edema control. Possible discharge if stable. 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 2 units packed red blood cell replacement yesterday. Will check labs. (4) Type 2 diabetes mellitus without complication: Qualifiers: Diabetes mellitus assisted insulin use: without assisted use Qualified Code(s): E11.9 - Type 2 diabetes mellitus without complications Code(s): E11.9 - Type 2 diabetes mellitus without complications Status: Acute (5) Non-Hodgkin's lymphoma in adult: Code(s): C85.90 - Non-Hodgkin lymphoma, unspecified, unspecified site Status: Acute Subjective Subjective Date/Time Seen: 04/23/20 7:30 Patient awake and alert. Up in chair eating breakfast. Mild pain right wrist. Exam Const: General: healthy appearing; No in distress or confusion Orientation/consciousness: oriented to person, oriented to place, oriented to time and No confusion HENMT: Head: normal to inspection, normocephalic and atraumatic Eyes: Conjunctivae: conjunctivae normal Sclera: sclerae normal Neck: Neck: supple and nontender Resp: Effort & Inspection: normal respiratory effort and no audible wheezes Cardio: Rate: regular rate Rhythm: regular rhythm Skin: General skin exam: no rashes or lesions noted Neuro: General: oriented to person, oriented to place, oriented to time and No confusion Extrem: Right upper extremity: normal to inspection, shoulder/upper arm normal to inspection; no tenderness and no swelling, elbow/forearm ( Short-arm splint in place, clean dry and intact), wrist other ( Splint in place.) and Extremity exam: right hand neurosensory exam normal radial nerve sensory function normal, ulnar nerve sensory function normal, median nerve sensory function normal and digital nerve sensory function normal and vascular exam normal capillary refill Left upper extremity: normal to inspection, shoulder/upper arm, elbow/forearm, wrist normal to inspection; no tenderness and no swelling and hand normal to inspection, normal capillary refill, neuromotor exam normal, neurosensory exam normal and normal ROM of fingers Psych: Affect: normal affect Objective Data Vital Signs Vital Signs: Vital Signs - 24 hr 04/22/20 10:23 04/22/20 10:35 04/22/20 10:50 Temperature 98.7 F 98.
--- NOTE | 2020-04-25 15:14 | PM.DS ---
DS: Admitting Diagnosis Admitting Diagnosis Admitting Diagnosis: open distal radius fx, rt DS: Discharge Diagnosis Discharge Diagnosis (1) Open fracture of distal end of right ulna: Onset Date: 04/21/20 Qualifiers: Encounter type: subsequent encounter Fracture healing: with routine healing Fracture morphology: other fracture Open fracture type: open type I or II Qualified Code(s): S52.691E - Other fracture of lower end of right ulna, subsequent encounter for open fracture type I or II with routine healing Code(s): S52.601B - Unspecified fracture of lower end of right ulna, initial encounter for open fracture type I or II Status: Acute (2) Open fracture of forearm, type I or II: Qualifiers: Encounter type: initial encounter Laterality: right Qualified Code(s): S52.91XB - Unspecified fracture of right forearm, initial encounter for open fracture type I or II Code(s): S52.90XB - Unspecified fracture of unspecified forearm, initial encounter for open fracture type I or II Status: Acute (3) Type 2 diabetes mellitus without complication: Qualifiers: Diabetes mellitus shelter insulin use: without shelter use Qualified Code(s): E11.9 - Type 2 diabetes mellitus without complications Code(s): E11.9 - Type 2 diabetes mellitus without complications Status: Acute (4) 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 Patient taken emergently to the operating room where underwent open debridement of the fracture and wound as well as fixation of the distal radius fracture and ulnar fracture. Patient admitted postoperatively in stable condition for intravenous antibiotics. Completed 48 hour course of intravenous antibiotic. Oncology consultation due to patient's history of lymphoma. No further recommendations per Oncology with regular follow-up scheduled. Patient remained stable otherwise. His pain was controlled with oral medication, tolerating regular diet, voiding appropriately and was cleared for discharge. He is in well-padded splint for the right forearm with sling. He has orthopedic follow-up in 1 week. He was discharged on oral medication for antibiotics. Exam Const: General: healthy appearing; No in distress or confusion Orientation/consciousness: oriented to person, oriented to place, oriented to time and No confusion HENMT: Head: normal to inspection, normocephalic and atraumatic Eyes: Conjunctivae: conjunctivae normal Sclera: sclerae normal Neck: Neck: supple and nontender Resp: Effort & Inspection: normal respiratory effort and no audible wheezes Cardio: Rate: regular rate Rhythm: regular rhythm Skin: General skin exam: no rashes or lesions noted Neuro: General: oriented to person, oriented to place, oriented to time and No confusion Extrem: Right upper extremity: normal to inspection, shoulder/upper arm, elbow/forearm ( Short-arm splint in place, clean dry and intact), wrist and Extremity exam: right hand Left upper extremity: normal to inspection, shoulder/upper arm, elbow/forearm, wrist and hand Psych: Affect: normal affect Discharge Plan Discharge Attending physician on discharge: Rajan Villalpando Consulting providers: Esvin Diaz Discharging Clinician: Rajan Villalpando Anticipated Discharge Date/Time: 04/23/20 13:00 Patient Disposition: Home, Self-Care Activity: follow weight bearing status Diet: diabetic Wound Care Instructions: keep dressing dry Discharge Instructions: RAJAN VILLALPANDO M.D. [facility] [address] [place], [place] [id number] P
== END 2020-04-23 11:40 | disposition home or self-care (01) | DRG 510 ==
LOC: ANHED 07:38 → ANHSURGERY 08:50 → ANH2MED 13:10
PROVIDERS: Admitting Provider Orthopaedic Surgery; Emergency Provider Emergency Medicine; PCP Internal Medicine; Visit Provider Orthopaedic Surgery
PROC: 0PSH04Z Reposition Right Radius with Internal Fixation Device, Open Approach (ICD-10-PCS; CPT 25575; principal; 2020-04-21 09:00)
DX: S52.571B Other intraarticular fracture of lower end of right radius, initial encounter for open fracture type I or II (principal); D61.89 Other specified aplastic anemias and other bone marrow failure syndromes; C85.90 Non-Hodgkin lymphoma, unspecified, unspecified site; S52.691B Other fracture of lower end of right ulna, initial encounter for open fracture type I or II; C50.921 Malignant neoplasm of unspecified site of right male breast; Z17.0 Estrogen receptor positive status [ER+]; W01.0XXA Fall on same level from slipping, tripping and stumbling without subsequent striking against object, initial encounter; E78.5 Hyperlipidemia, unspecified; E11.9 Type 2 diabetes mellitus without complications; Z79.810 Long term (current) use of selective estrogen receptor modulators (SERMs); Z79.899 Other long term (current) drug therapy; Z90.11 Acquired absence of right breast and nipple; Z92.21 Personal history of antineoplastic chemotherapy; Z92.3 Personal history of irradiation
CPT/HCPCS: 36415; 36430; 70450; 71045; 73110; 80048; 80053; 85025; 85055; 85610; 85730; 86850; 86900; 86901; 86923; 96361; 96365; 96367; 96375; 96376; 97161; 99285; A4565; A9270; C1713; J0131; J0690; J1100; J1580; J1741; J2270; J2405; J2704; J3010; J3480; J7030; J7050; J7120; P9016

== ENCOUNTER 2021-11-09 15:04 | Observation (INO) | payer OTHER, SELFPAY ==
[2021-11-09] VITALS (15 sets, daily range): BP systolic 104–131; BP diastolic 47–81; PULSE 106–153; RESP 17–24; TEMP 36.4–36.8; O2SAT 95–98; BMI 24.1
--- NOTE | ~2021-11-09 | CT_ITS ---
EXAMINATION: CT brain wo con DATE: 11/09/2021 22:48 INDICATION: Fall TECHNIQUE: Computed tomography (CT) of the head was performed without intravenous contrast. Sagittal and coronal reconstructions were performed. The mA was adjusted according to patient size. Iterative reconstruction technique was employed. The dose-length product was 605.33 mGy-cm. COMPARISON: head CT dated 04/21/2020 FINDINGS: No fracture. There is increased density but no interval change in thickness along the falx, tentorium and venous sinuses consistent with residual contrast from a recent contrast enhanced chest CT. No ac [place] intracranial hemorrhage, acute infarction or abnormal extra axial fluid collection. There is unch anged mild scattered white matter hypoattenuation consistent with chronic small vessel ischemic disea se. Symmetric prominence of the sulci consistent with mild to moderate age-appropriate diffuse cerebr al volume loss. Ventricles are normal and symmetric. No mass/mass effect. Changes of bilateral intrao cular lens replacement. Mild mucosal thickening the bilateral ethmoid sinuses. Trace left mastoid eff usion. Intracranial calcified cerebral atherosclerosis is noted. IMPRESSION: 1. No fracture or acute intracranial process. 2. Age-related changes including mild to moderate diffuse volume loss and mild scattered white matter hypoattenuation consistent with chronic small vessel ischemic disease. Reviewed, dictated and finalized at location A. IMPRESSION: 1. No fracture or acute intracranial process. 2. Age-related changes including mild to moderate diffuse volume loss and mild scattered white matter hypoattenuation consistent with chronic small vessel isc hemic disease.
--- NOTE | ~2021-11-09 | XR_ITS ---
EXAMINATION: XR chest 2V Exam Date/Time: 11/09/2021 17:05 CDT CLINICAL HISTORY: cough and swollen ankles x3days Comparison: 04/21/2020. RESULT: Lines, tubes, and devices: None. Lungs and pleura: Clear. Cardiomediastinal silhouette: Stable cardiomediastinal silhouette. Other: No acute osseous or upper abdominal finding. IMPRESSION: No acute cardiopulmonary process Reviewed, dictated and finalized at location K.
--- NOTE | ~2021-11-09 | CT_ITS ---
EXAMINATION: CT brain wo con DATE: 11/10/2021 01:27 INDICATION: Abnormal head CT post recent fall TECHNIQUE: Computed tomography (CT) of the head was performed without intravenous contrast. Sagittal and coronal reconstructions were performed. The mA was adjusted according to patient size. Iterative reconstruction technique was employed. The dose-length product was 681.00 mGy-cm. COMPARISON: head CT dated 11/09/2021 FINDINGS: No fracture. No acute intracranial hemorrhage, acute infarction or abnormal extra axial fluid collect ion. There is mild scattered white matter hypoattenuation consistent with chronic small vessel ischem ic disease. Symmetric prominence of the sulci and ventricles consistent with mild to moderate age-feliciano ropriate diffuse cerebral volume loss. Ventricles are normal and symmetric. No mass/mass effect. Mima nges of bilateral intraocular lens replacement. The callosal thickening the bilateral ethmoid sinuses . Trace left mastoid effusion. Intracranial calcified cerebral atherosclerosis is noted. IMPRESSION: 1. No fracture or acute intracranial process. 2. Age-related changes including mild to moderate diffuse volume loss and mild scattered white matter hypoattenuation consistent with chronic small vessel ischemic disease. Reviewed, dictated and finalized at location A. IMPRESSION: 1. No fracture or acute intracranial process. 2. Age-related changes including mild to moderate diffuse volume loss and mild scattered white matter hypoattenuation consistent with chronic small vessel isc hemic disease.
--- NOTE | ~2021-11-09 | CT_ITS ---
EXAMINATION: CTA chest PE protocol DATE: 11/09/2021 20:57 INDICATION: hypoxia, tachycardia, leukemia, r/o PE TECHNIQUE: Computed tomography angiography (CTA) of the chest was performed with 100 mL Omnipaque-350 intravenous contrast timed to evaluate the pulmonary arteries. Coronal maximum intensity projection 3D-reconstructions were created by the technologist. The dose-length product (DLP) was 526.18 mGy-cm. Automated exposure control and iterative reconstruction technique were employed. COMPARISON: X-ray chest, same date. FINDINGS: Study quality: Adequate. Pulmonary arteries: No pulmonary emboli detected. Thoracic aorta: Mild ectasia. Atherosclerotic calcifications. Lung parenchyma and airways: Mild motion artifact. Subsegmental areas of peribronchial thickening and consolidation in the bilateral dependent lower lobes and left lower lobe superior segment. Scattered airway debris primarily in the dependent lower lobes. Granulomatous calcifications. Thoracic inlet, axillae and chest wall: Right axillary clips. Left gynecomastia. Mediastinum: Normal. Heart and pericardium: Cardiomegaly. Coronary artery calcifications: Moderate. Pleura: No effusion or pleural mass. Upper abdomen: Splenomegaly. Granulomatous calcifications. Bones: No acute osseous finding. IMPRESSION: No CT evidence of acute pulmonary embolus. Pulmonary findings suggestive of aspiration pneumonia. Spl enomegaly. Reviewed, dictated and finalized at location K. IMPRESSION: No CT evidence of acute pulmonary embolus. Pulmonary findings suggestive of asp iration pneumonia. Splenomegaly.
--- NOTE | 2021-11-09 16:56 | ED.GENADULT ---
HPI - General Adult General Chief complaint: Fall Stated complaint: o2 sat 91, glf x 3 this week, swollen ankles, coug Time Seen by Provider: 11/09/21 16:49 History of Present Illness HPI narrative: 86-year-old male presents emergency room for evaluation of a productive cough that he has had for several days. Patient states his cough is associated with bilateral ankle swelling. Patient denies shortness of breath, fever, chest pain, dyspnea. Patient states that he has leukemia, and is receiving blood transfusions every other week. Patient also states that he has fallen multiple times in the last week, stating the cause of his falls is because his knees give out on him. Patient denies any generalized weakness or dizziness or presyncope. Patient denies head injury or loss of consciousness. Related Data Home Medications Medication Instructions Recorded Confirmed blood sugar diagnostic #10 each 07/05/19 09/18/21 finasteride 5 mg tablet 5 mg PO DAILY 07/05/19 09/18/21 anastrozole 1 mg PO DAILY 04/21/20 09/18/21 cyanocobalamin (vitamin B-12) 1,000 mcg PO DAILY 04/21/20 09/18/21 [Vitamin B-12] venlafaxine 37.5 mg tablet 37.5 mg PO DAILY 05/17/20 09/18/21 pregabalin 300 mg capsule 300 mg PO DAILY cap 06/19/20 09/18/21 methotrexate sodium 2.5 mg tablet 2.5 mg PO WEEKLY 03/28/21 09/18/21 cyclosporine 100 mg capsule 100 mg PO Q12H 08/12/21 09/18/21 alendronate mg PO WEEKLY 11/09/21 alpha lipoic acid 200 mg PO DAILY 11/09/21 folic acid PO DAILY 11/09/21 glipizide 2.5 mg PO DAILY 11/09/21 Allergies Allergy/AdvReac Type Severity Reaction Status Date / Time No Known Allergies Allergy Verified 11/09/21 15:09 Review of Systems Review of Systems: CONSTITUTIONAL: Denies fever, chills, or sweats. EYES: Denies visual changes, redness, or discharge. ENT: Denies rhinorrhea, congestion, sore throat, or otalgia. CARDIOVASCULAR: Denies chest pain, palpitations. Reports lower extremity edema RESPIRATORY: Cough GASTROINTESTINAL: Denies abdominal pain, nausea, vomiting, or diarrhea. GENITOURINARY: Denies dysuria or hematuria. SKIN: Denies rash or itching. MUSCULOSKELETAL: Denies back pain, joint pain, or myalgia. NEUROLOGIC: Denies headache, numbness, dizziness, or weakness. PSYCHIATRIC: Denies anxiety or depression. [facility] Past Medical History Medical History History of breast cancer in male Hyperlipidemia, unspecified Non-Hodgkin's lymphoma in adult Open fracture of forearm, type I or II Pressure ulcer, buttock Vision abnormalities Surgical History Surgical History History of mastectomy S/P colonoscopic polypectomy Family History Family History Sibling Patient's sister is in good health Father Family history of malignant neoplasm Family history of diabetes mellitus in first degree relative Patient's father is Diabetes mellitus Mother Family history of malignant neoplasm Patient's mother is Other Arthritis Heart disease Neuropathy Social History Social History Smoking status: Former smoker Second hand tobacco smoke exposure: Yes Alcohol intake: never Substance use: never Substance use type: does not use Gender identity (if verbalized by the patient): Male Spiritual care concerns: No Exam Narrative: GENERAL: Well-appearing, well-nourished, and in no acute distress. HEAD: Normocephalic, atraumatic. EYES: PERRLA and EOMI. CHEST: Wheezing to upper [place], rhonchi to lower lung [place] HEART: Regular rate and rhythm. No murmur heard. Normal peripheral pulses. ABDOMEN: Soft, nontender, nondistended, normal active bowel sounds. EXTREMITIES: Normal range of motion. +3/+4 pitting edema to ankles and feet SKIN: Warm, dry, no rash.
[2021-11-09 17:12] LABS: Basophils Percent Auto 0.2 % (0.2-1.2); Eosinophils Absolute Auto 0.1 K/mm3 (0-0.3); Eosinophils Percent Auto 0.7 % (0-4.4); Hemoglobin 7.3 g/dL (14.0-18.0); Immature Granulocyte Absolute 0.15 K/mm3 (0.00-0.031); Immature Granulocyte Percent A 1.7 % (0-0.5); Immature Platelet Fraction Pct 7.9 % (0.9-11.2); Lymphocytes Absolute Auto 5.01 K/mm3 (0.9-3.2); Lymphocytes Percent Auto 58.4 % (18.3-44.2); Mean Corpuscular HGB Conc 31.7 g/dl (32-36); Mean Corpuscular Hemoglobin 37.8 pg (26-34); Mean Corpuscular Volume 119.2 fl (80-100); Mean Platelet Volume 11.3 fl (7.4-10.4); Monocytes Percent Auto 11.3 % (2.6-8.5); Neutrophils Absolute Auto 2.4 K/mm3 (1.3-6.7); Neutrophils Percent Auto 27.7 % (45.5-73.1); Platelet Count Result 142 k/mm3 (150-375); Red Blood Count 1.93 M/mm3 (4.6-6.20); Red Cell Distribution Width 23.2 % (11.5-14.5); White Blood Count 8.6 K/mm3 (4.5-10.0)
[2021-11-09 17:20] LABS: Alanine Aminotransferase 11 U/L (4-50); Albumin Level 3.5 g/dL (3.5-5.1); Alkaline Phosphatase 69 U/L (38-126); Anion Gap 7 mmol/L (8-16); Aspartate Amino Transferase 24 U/L (17-59); Bilirubin,Total 0.8 mg/dL (0.2-1.3); Blood Urea Nitrogen 14 mg/dL (9-20); Calcium 8.1 mg/dL (8.4-10.2); Carbon Dioxide 28 mmol/L (22-30); Chloride 103 mmol/L (98-107); Estimated CRCL calculation 64 ml/min; Estimated Glomerular Filt Rate > 60; Glucose 155 mg/dL (65-110); Potassium 3.4 mmol/L (3.4-5.0); Sodium 138 mmol/L (137-145)
[2021-11-09 17:28] LABS: NT Pro B Type Natriuretic Pept 3890 pg/mL (5-100)
[2021-11-09] MEDS: IPRATROPIUM BR 0.02% INH SOLN 0.5 MG/2.5 ML VIAL INHALATION (17:52)
[2021-11-09] MEDS: ALBUTEROL SULFATE NEB 2.5 MG/0.5 ML INH 5 MG INHALATION (17:52)
--- NOTE | 2021-11-09 18:24 | ECG_ITS ---
Measurements Intervals [place] Rate: 105 P: 53 NC: 166 QRS: -11 QRSD: 61 T: 31 QT: 306 QTc: 405 Interpretive Statements SINUS TACHYCARDIA WITH OCCASIONAL SUPRAVENTRICULAR PREMATURE COMPLEXES LOW QRS VOLTAGE IN PRECORDIAL LEADS [QRS DEFLECTION < 1.0 mV IN CHEST LEADS] INFERIOR MYOCARDIAL INFARCTION , PROBABLY OLD [40+ ms Q WAVE AND/OR ST/T ABNORMALITY IN II/aVF] ANTEROSEPTAL MYOCARDIAL INFARCTION , OLD NO PREVIOUS ECG AVAILABLE FOR COMPARISON Electronically Signed On 11-10-2021 8:02:19 CDT by Hernán Jackman M.D.
[2021-11-09] MEDS: FUROSEMIDE INJ 40 MG/4 ML VIAL IV PUSH (19:00)
[2021-11-09] MEDS: METOPROLOL TARTRATE INJ 5 MG/5 ML VIAL IV PUSH (19:00)
[2021-11-09 19:02] LABS: Troponin I < 0.012 ng/mL (0.000-0.034)
--- NOTE | 2021-11-09 19:10 | PC.NURSE ---
Assumed care of pt at this time. Pt resting on stretcher, family at bedside.
--- NOTE | 2021-11-09 19:40 | PM.IMHP ---
H&P: HPI History of Present Illness Date/Time: 11/09/21 19:40 Chief Complaint: 86 years old male with past medical history of diabetes hyperlipidemia non-Hodgkin lymphoma presented to the hospital with cough started for the past 2 weeks worsening gradually intermittent no aggravating or relieving factor dry in nature associated with bilateral lower extremity swelling worsening gradually patient denies shortness of breath patient also has multiple fall recently denies focal weakness patient stated that he has multiple fall due to his knees are given up at the ER patient was found to have elevated BNP was given nebulizer treatment developed sinus tachycardia patient was found to have CHF exacerbation also as patient has significant tachycardia concern for PE with patient history of cancer CT scan of the chest pending Review of Systems Review of Systems: Twelve system review was done negative other than mentioned in HPI PMFSH Past Medical History Medical History History of breast cancer in male Hyperlipidemia, unspecified Non-Hodgkin's lymphoma in adult Open fracture of forearm, type I or II Pressure ulcer, buttock Vision abnormalities Surgical History Surgical History History of mastectomy S/P colonoscopic polypectomy Family History Family History Sibling Patient's sister is in good health Father Family history of malignant neoplasm Family history of diabetes mellitus in first degree relative Patient's father is Diabetes mellitus Mother Family history of malignant neoplasm Patient's mother is Other Arthritis Heart disease Neuropathy Social History Social History Smoking status: Former smoker Second hand tobacco smoke exposure: Yes Alcohol intake: never Substance use: never Substance use type: does not use Gender identity (if verbalized by the patient): Male Spiritual care concerns: No Meds Home Medications and Allergies Home Medications Medication Instructions Recorded Confirmed Type blood sugar diagnostic #10 each 07/05/19 09/18/21 History finasteride 5 mg tablet 5 mg PO DAILY 07/05/19 09/18/21 History anastrozole 1 mg PO DAILY 04/21/20 09/18/21 History cyanocobalamin (vitamin B-12) 1,000 mcg PO DAILY 04/21/20 09/18/21 History [Vitamin B-12] venlafaxine 37.5 mg tablet 37.5 mg PO DAILY 05/17/20 09/18/21 History pregabalin 300 mg capsule 300 mg PO DAILY cap 06/19/20 09/18/21 History methotrexate sodium 2.5 mg tablet 2.5 mg PO WEEKLY 03/28/21 09/18/21 History metformin 500 mg tablet 1,000 mg PO BID #360 tablet 06/27/21 09/18/21 Rx blood sugar diagnostic See Rx Instructions .ROUTE 07/11/21 09/18/21 Rx .COMPLEX #100 strip pravastatin 40 mg tablet See Rx Instructions .ROUTE 08/05/21 09/18/21 Rx .COMPLEX #90 tablet sitagliptin 50 mg tablet 50 mg PO DAILY #30 tablet 08/07/21 09/18/21 Rx cyclosporine 100 mg capsule 100 mg PO Q12H 08/12/21 09/18/21 History lancets See Rx Instructions .ROUTE 08/12/21 09/18/21 Rx .COMPLEX #100 ea ipratropium bromide 21 mcg (0.03 2 spray INTRANASAL TID #30 ml 09/18/21 09/18/21 Rx %) nasal spray hydrocodone 10 mg-acetaminophen 1 tablet PO QID PRN #120 tablet 11/05/21 Rx 325 mg tablet alendronate mg PO WEEKLY 11/09/21 History alpha lipoic acid 200 mg PO DAILY 11/09/21 History folic acid PO DAILY 11/09/21 History glipizide 2.5 mg PO DAILY 11/09/21 History Allergies Allergy/AdvReac Type Severity Reaction Status Date / Time No Known Allergies Allergy Verified 11/09/21 15:09 Vital Signs Vital Signs - 24 hr 11/09/21 15:05 11/09/21 19:00 Temperature 98.3 F Pulse Rate 106 H 147 H Respiratory Rate 18 Blood Pressure 126/47 L Pulse Oximetry 98 Exam Const
[2021-11-09] MEDS: AMIODARONE 150 MG/D5W 100 ML 150 MG/100 ML BAG 600 MG IV CONT (20:17)
[2021-11-09] MEDS: HEPARIN SODIUM 5,000 UNITS/ML VIAL 6000 UNITS IV PUSH (20:26)
[2021-11-09 20:29] LABS: Uric Acid 4.6 mg/dL (3.5-8.5)
[2021-11-09 20:32] LABS: Basophils Percent Auto 0.4 % (0.2-1.2); Eosinophils Absolute Auto 0.1 K/mm3 (0-0.3); Eosinophils Percent Auto 0.9 % (0-4.4); Hematocrit 22.9 % (42.0-52.0); Hemoglobin 7.3 g/dL (14.0-18.0); Immature Granulocyte Absolute 0.22 K/mm3 (0.00-0.031); Immature Granulocyte Percent A 2.8 % (0-0.5); Lymphocytes Absolute Auto 4.07 K/mm3 (0.9-3.2); Lymphocytes Percent Auto 52.6 % (18.3-44.2); Mean Corpuscular HGB Conc 31.9 g/dl (32-36); Mean Corpuscular Hemoglobin 37.6 pg (26-34); Mean Platelet Volume 11.8 fl (7.4-10.4); Monocytes Percent Auto 13.2 % (2.6-8.5); Neutrophils Absolute Auto 2.3 K/mm3 (1.3-6.7); Neutrophils Percent Auto 30.1 % (45.5-73.1); Platelet Count Result 156 k/mm3 (150-375); Red Blood Count 1.94 M/mm3 (4.6-6.20); Red Cell Distribution Width 23.1 % (11.5-14.5); White Blood Count 7.7 K/mm3 (4.5-10.0)
[2021-11-09 20:35] LABS: Troponin I < 0.012 ng/mL (0.000-0.034)
[2021-11-09 20:38] LABS: CRP 11.2 mg/dL (<1.0)
[2021-11-09 20:41] LABS: INR 1.1; Prothrombin Time 14.1 Seconds (11.1-14.7)
[2021-11-09 20:43] LABS: Partial Thromboplastin Time 49.3 SECONDS (22.3-36.8)
[2021-11-09] MEDS: HEPARIN SOD/D5W 100 UNITS/ML 25,000 UNITS/250 ML BAG 13 UNITS IV CONT (21:11)
[2021-11-09] MEDS: AMIODARONE 360 MG/D5W 200 ML 360 MG/200 ML BAG 33.33 MG IV CONT (21:12)
[2021-11-09 21:42] LABS: Folic Acid > 20.0 ng/mL (2.76->20)
[2021-11-09] MEDS: METOPROLOL TARTRATE INJ 5 MG/5 ML VIAL 2.5 MG IV PUSH (23:57)
[2021-11-10] VITALS (22 sets, daily range): BP systolic 112–135; BP diastolic 59–81; PULSE 53–142; RESP 14–24; TEMP 36.4–37.3; O2SAT 88–95
[2021-11-10 00:15] LABS: Troponin I < 0.012 ng/mL (0.000-0.034)
--- NOTE | 2021-11-10 01:29 | ADMGEN ---
This patient, Otis Morales, was admitted to IMU Room 231-01 on 11/09/21 at 2057. Patient/family oriented to hospital policies and general routines including ID bracelet, bed and alarms, visiting hours, pain management, procedures, bathroom and other care routines, personal items, smoking policy, room service/diet, and visiting hours. Information on how to activate the Rapid Response Team has been discussed. Patient/Family are encouraged to report perceived risks to care and to ask questions if they do not understand what they are told or what they should do.
[2021-11-10] MEDS: AMIODARONE 360 MG/D5W 200 ML 360 MG/200 ML BAG 16.67 MG IV CONT ×2 (02:54→14:17)
[2021-11-10 06:08] LABS: Basophils Percent Auto 0.2 % (0.2-1.2); Eosinophils Percent Auto 0.4 % (0-4.4); Immature Granulocyte Absolute 0.18 K/mm3 (0.00-0.031); Immature Granulocyte Percent A 2.2 % (0-0.5); Lymphocytes Absolute Auto 4.44 K/mm3 (0.9-3.2); Lymphocytes Percent Auto 53.1 % (18.3-44.2); Mean Corpuscular HGB Conc 31.7 g/dl (32-36); Mean Corpuscular Hemoglobin 37.2 pg (26-34); Mean Corpuscular Volume 117.4 fl (80-100); Mean Platelet Volume 11.3 fl (7.4-10.4); Monocytes Percent Auto 12.1 % (2.6-8.5); Neutrophils Absolute Auto 2.7 K/mm3 (1.3-6.7); Nucleated Red Blood Cells Perc 0.2 % (0.0-0.2); Platelet Count Result 128 k/mm3 (150-375); Red Blood Count 1.72 M/mm3 (4.6-6.20); White Blood Count 8.4 K/mm3 (4.5-10.0)
[2021-11-10 06:20] LABS: Alanine Aminotransferase 9 U/L (4-50); Albumin Level 3.4 g/dL (3.5-5.1); Alkaline Phosphatase 70 U/L (38-126); Anion Gap 8 mmol/L (8-16); Aspartate Amino Transferase 19 U/L (17-59); Blood Urea Nitrogen 11 mg/dL (9-20); Calcium 7.8 mg/dL (8.4-10.2); Carbon Dioxide 29 mmol/L (22-30); Chloride 99 mmol/L (98-107); Estimated CRCL calculation 74 ml/min; Estimated Glomerular Filt Rate > 60; Glucose 138 mg/dL (65-110); Sodium 136 mmol/L (137-145)
[2021-11-10 06:21] LABS: Hematocrit 20.2 % (42.0-52.0); Hemoglobin 6.4 g/dL (14.0-18.0)
[2021-11-10] MEDS: SODIUM CHLORIDE 0.9% IV 250 ML 30 ML IV CONT (09:52)
[2021-11-10] MEDS: TUBING, BLOOD PLUM PUMP TUBING 1 EACH XX (09:53)
--- NOTE | 2021-11-10 10:40 | PC.NURSE ---
Patient stated he is tired of being sick and tired of the treatments. He verbally requested a hospice consult. Son (Seun) and were both present during the conversation. Dt. Felder notified, and Care coordination has been notified.
--- NOTE | 2021-11-10 11:31 | PM.CNCAR ---
Assessment and Plan Additional Plan This is an 86-year-old man who was feeling unwell I believe most of his symptomatology is attributable to severe anemia with a hemoglobin of 6.4. He is appropriately receiving a red cell transfusion at this time. He has no prior cardiac history and is really not reporting symptoms in my opinion that would indicate congestive heart failure. He certainly is a candidate for high output failure with this sort of anemia but of course the treatment of that would be to provided transfusion. Apparently the hospitalists are now telling me they are considering hospice level care. I do not believe this patient requires a cardiac workup at this time. He is not reporting any symptoms that concern me regarding congestive failure. His prognosis given his malignancy and severe anemia is obviously very poor. His oncologist is not available for consultation here at [facility] or to provide assistance with his care. If you have other specific cardiac concerns while he is here please let me know but at this time I will sign off of his case Hernán Jackman MD [facility] History of Present Illness History of Present Illness Consult date/time: 11/10/21 11:31 Consult reason: congestive heart failure Reason For Visit: dyspnea, CHF Narrative: This is an 86-year-old man I am seeing at the request of the hospitalist because of congestive heart failure. The chart has been reviewed and the patient was seen. On the surface I do not see any evidence of congestive heart failure at this time. The patient says he is not known to have any cardiac problems in the past. His principal health problems include malignancies both with lymphoma as well as breast cancer. He has a severe myelodysplastic syndrome and severe anemia which requires regular blood transfusions for about 2 years. The patient states that his oncologist who is not here at [place] has been having to increase the frequency of his red cell transfusions to almost weekly at this time. He was brought to the hospital when his family found him to be getting extremely weak almost in a bit unable to stand up and he slid out of his chair onto the floor of his home. He is not reporting any orthopnea PND accumulating edema or other symptoms that would make me think of congestive heart failure. His chest x-ray is an unremarkable film. Hemoglobin level on admission is very low at 6.4 g. He is now receiving a red cell transfusion as I entered the room to see him. Electrocardiogram shows sinus tachycardia. He is not having any chest pain palpitations or syncope. Review of Systems Constitutional: Constitutional: Reports fatigue and Reports lethargy Eyes: Eyes: Reports no additional eye complaints ENT: Reports system reviewed and no additional complaints, except as documented Cardiovascular: Cardiovascular: Reports no additional cardiovascular complaints Respiratory: Respiratory: Reports no additional respiratory complaints Gastrointestinal: Gastrointestinal: Reports no additional gastrointestinal complaints Musculoskeletal: Musculoskeletal: Reports no additional musculoskeletal complaints Integumentary/Breasts: Skin/Breast: Reports system reviewed and no additional complaints, except as docu Neurologic: Reports system reviewed and no additional complaints, except as documented Endocrine: Endocrine: Reports no additional endocrine complaints Hematologic/Lymphatic: Hematologic/Lymphatic: Reports as per HPI Allergic/Immunologic: Allergic/Immunologic: Reports no additional allergic/immunologic complaints PMFSH Past Medical History Medical History History of breast cancer in male Hyperlipidemia, unspecified Non-Hodgkin's lymphoma in adult Open fracture of forearm, type I or II Pressure ulcer, buttock Vision abnormalities Surgical History Surgical History (Reviewed 11/09/21 @ 19:43 by Tristan Pierce,
--- NOTE | 2021-11-10 11:41 | PCSTNOTE ---
Please refer to the Bedside Swallow Evaluation in the EMR. Please note, silent aspiration cannot be ruled out at bedside.
--- NOTE | 2021-11-10 12:03 | PM.IMPN ---
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: Code(s): E11.39 - Type 2 diabetes mellitus with other diabetic ophthalmic complication Status: Acute Assessment and Plan: Hold metformin Start insulin sliding scale Diabetic diet (2) Hyperlipidemia, unspecified: Code(s): E78.5 - Hyperlipidemia, unspecified Status: Acute Assessment and Plan: Pending home medication reconciliation (3) Non-Hodgkin's lymphoma in adult: Code(s): C85.90 - Non-Hodgkin lymphoma, unspecified, unspecified site Status: Acute Assessment and Plan: Patient follows up with Oncology as outpatient stable (4) Leg edema: Code(s): R60.0 - Localized edema Status: Acute Assessment and Plan: I do not think this is related to CHF. (5) Fall: Code(s): W19.XXXA - Unspecified fall, initial encounter Status: Acute Assessment and Plan: Most likely mechanical fall PT OT evaluation (6) Atrial flutter: Code(s): I48.92 - Unspecified atrial flutter Status: Acute Assessment and Plan: Patient wants to be sent home on home hospice. (7) Chronic anemia: Code(s): D64.9 - Anemia, unspecified Status: Acute Assessment and Plan: Transfuse as needed currently. However, Plan is to send the patient home on hospice. (8) Prostate cancer: Code(s): C61 - Malignant neoplasm of prostate Status: Acute Assessment and Plan: Complicates the management of AFib (9) Breast cancer in male: Code(s): C50.929 - Malignant neoplasm of unspecified site of unspecified male breast Status: Acute Assessment and Plan: Patient follows up with Hematology as outpatient Discussed with the patient and his son patient want to be DNR DNI no artificial ventilation, and would like to be sent home on hospice. Care coordination consulted. Subjective Date/time seen: 11/10/21 12:03 The patient had a lengthy discussion with his family this morning. He wants to be sent home on home hospice. Consults have been entered. Exam Const: General: in distress HENMT: Mouth: Yes moist mucous membranes Eyes: Sclera: sclerae normal Neck: Neck: supple Resp: Auscultation: crackles, rales and rhonchi Cardio: Rate: regular rate and tachycardic Rhythm: regular rhythm GI: Inspection: non-distended Skin: General skin exam: normal color Neuro: Speech: normal speech Motor exam (neuro): 5/5 motor strength present throughout and Normal motor muscle tone present throughout Sensory Exam: normal sensation Extrem: General: normal to inspection and no edema Right upper extremity: normal to inspection Left upper extremity: normal to inspection Right lower extremity: edema Left lower extremity: edema Psych: Mental Status: mental status grossly normal Objective Data Vital Signs Vital Signs: Vital Signs - 24 hr 11/09/21 15:05 11/09/21 19:00 11/09/21 19:10 Temperature 98.3 F Pulse Rate 106 H 147 H 153 H Respiratory Rate 18 17 Blood Pressure 126/47 L 120/72 Pulse Oximetry 98 95 11/09/21 19:44 11/09/21 19:52 11/09/21 20:17 Temperature Pulse Rate 149 H 150 H 153 H Respiratory Rate 20 19 Blood Pressure 111/75 111/79 104/81 Pulse Oximetry 96 96 11/09/21 20:56 11/09/21 21:05 11/09/21 21:12 Temperature Pulse Rate 135 H 144 H 147 H Respiratory Rate Blood Pressure Pulse Oximetry 11/09/21 21:14 11/09/21 21:41 11/09/21 21:42 Temperature 97.6 F Pulse Rate 143 H Respiratory Rate 24 H Blood Pressure 126/68 130/73 124/76 Pulse Oximetry 96 11/09/21 22:00 11/09/21 23:20 11/09/21 23:57 Temperature 97.6 F Pulse Rate 142 H 146 H 147 H Respiratory Rate 20 Blood Pressure 131/79 Pulse Oximetry 97 11/10/21 00:00 11/10/21 02:00 11/10/21 02:54 Temperature Pulse Rate 142 H 106 H 104 H Respiratory Rate Blood Pressure Pulse Oxi
[2021-11-10] MEDS: IPRATROPIUM NASAL SPRAY 0.03% 15 ML BOTTLE 2 SPRAY NASAL (12:08)
[2021-11-10] MEDS: CHOLECALCIFEROL 1,000 UNITS TABLET 2000 UNITS PO (12:08)
[2021-11-10] MEDS: glipiZIDE 2.5 MG TABLET PO (12:08)
[2021-11-10] MEDS: ANASTROZOLE (*CHEMO) 1 MG TABLET PO (12:10)
[2021-11-10] MEDS: FOLIC ACID 1 MG TABLET PO (12:10)
[2021-11-10] MEDS: VENLAFAXINE HCL XR 37.5 MG CAP BY MOUTH (12:10)
[2021-11-10] MEDS: FUROSEMIDE INJ 40 MG/4 ML VIAL IV PUSH ×2 (12:11→18:45)
[2021-11-10] MEDS: PRAVASTATIN SODIUM 20 MG TABLET 40 MG PO (12:11)
[2021-11-10] MEDS: PREGABALIN (*CRX) 75 MG CAPSULE 300 MG PO ×2 (12:13→18:40)
--- NOTE | 2021-11-10 12:52 | PCPTNOTE ---
note indicates pt's request to change to hospice with DNR. Will DC PT order.
--- NOTE | 2021-11-10 13:01 | PCOTNOTE ---
Per pt. is going hospice. OT order with be DC.
[2021-11-10 17:23] LABS: Hematocrit 25.2 % (42.0-52.0); Hemoglobin 8.1 g/dL (14.0-18.0)
[2021-11-10 18:40] LABS: Glucose Point of Care 158 mg/dl (65-105)
[2021-11-10] MEDS: ACETAMINOPHEN 325 MG TABLET 650 MG PO (19:46)
[2021-11-10 20:00] LABS: Glucose Point of Care 218 mg/dl (65-105)
[2021-11-11] VITALS (12 sets, daily range): BP systolic 121–123; BP diastolic 57–76; PULSE 77–108; RESP 18–22; TEMP 36.8–37.2; O2SAT 94–97
[2021-11-11 00:55] LABS: Hematocrit 24.8 % (42.0-52.0); Hemoglobin 8.1 g/dL (14.0-18.0)
[2021-11-11] MEDS: AMIODARONE 360 MG/D5W 200 ML 360 MG/200 ML BAG 16.67 MG IV CONT (01:54)
[2021-11-11 06:28] LABS: Basophils Percent Auto 0.5 % (0.2-1.2); Eosinophils Percent Auto 0.5 % (0-4.4); Hematocrit 24.8 % (42.0-52.0); Immature Granulocyte Absolute 0.27 K/mm3 (0.00-0.031); Immature Granulocyte Percent A 4.1 % (0-0.5); Lymphocytes Absolute Auto 2.84 K/mm3 (0.9-3.2); Lymphocytes Percent Auto 42.8 % (18.3-44.2); Mean Corpuscular HGB Conc 32.3 g/dl (32-36); Mean Corpuscular Hemoglobin 34.9 pg (26-34); Mean Corpuscular Volume 108.3 fl (80-100); Mean Platelet Volume 11.9 fl (7.4-10.4); Monocytes Absolute Auto 0.9 K/mm3 (0.1-0.6); Monocytes Percent Auto 12.8 % (2.6-8.5); Neutrophils Absolute Auto 2.6 K/mm3 (1.3-6.7); Neutrophils Percent Auto 39.3 % (45.5-73.1); Platelet Count Result 142 k/mm3 (150-375); Red Blood Count 2.29 M/mm3 (4.6-6.20); White Blood Count 6.6 K/mm3 (4.5-10.0)
[2021-11-11 07:18] LABS: Alanine Aminotransferase 9 U/L (4-50); Albumin Level 3.5 g/dL (3.5-5.1); Alkaline Phosphatase 71 U/L (38-126); Anion Gap 3 mmol/L (8-16); Aspartate Amino Transferase 20 U/L (17-59); Bilirubin,Total 1.2 mg/dL (0.2-1.3); Blood Urea Nitrogen 12 mg/dL (9-20); Calcium 7.7 mg/dL (8.4-10.2); Carbon Dioxide 33 mmol/L (22-30); Chloride 98 mmol/L (98-107); Estimated CRCL calculation 64 ml/min; Estimated Glomerular Filt Rate > 60; Glucose 191 mg/dL (65-110); Potassium 2.7 mmol/L (3.4-5.0); Sodium 134 mmol/L (137-145)
[2021-11-11 07:59] LABS: Glucose Point of Care 179 mg/dl (65-105)
[2021-11-11] MEDS: POTASSIUM CHLORIDE 20 MEQ PACKET (FOR LIQUID) 40 MEQ PO (08:18)
[2021-11-11] MEDS: POTASSIUM CHLORIDE INJ 40 MEQ in SODIUM CHLORIDE 0.9% IV 500 ML 130 MEQ IVPB (08:18)
[2021-11-11] MEDS: glipiZIDE 2.5 MG TABLET PO (08:19)
[2021-11-11] MEDS: PRAVASTATIN SODIUM 20 MG TABLET 40 MG PO (09:15)
[2021-11-11] MEDS: FOLIC ACID 1 MG TABLET PO (09:16)
[2021-11-11] MEDS: CHOLECALCIFEROL 1,000 UNITS TABLET 2000 UNITS PO (09:16)
[2021-11-11] MEDS: ANASTROZOLE (*CHEMO) 1 MG TABLET PO (09:17)
[2021-11-11] MEDS: VENLAFAXINE HCL XR 37.5 MG CAP BY MOUTH (09:17)
[2021-11-11] MEDS: FUROSEMIDE INJ 40 MG/4 ML VIAL IV PUSH (09:17)
[2021-11-11] MEDS: PREGABALIN (*CRX) 75 MG CAPSULE 300 MG PO (11:46)
[2021-11-11 12:04] LABS: Hematocrit 26.2 % (42.0-52.0); Hemoglobin 8.7 g/dL (14.0-18.0)
[2021-11-11 12:05] LABS: Glucose Point of Care 191 mg/dl (65-105)
[2021-11-11] MEDS: IPRATROPIUM NASAL SPRAY 0.03% 15 ML BOTTLE 2 SPRAY NASAL (12:48)
[2021-11-11] MEDS: POTASSIUM CHLORIDE 20 MEQ PACKET (FOR LIQUID) PO (13:48)
--- NOTE | 2021-11-11 14:09 | PM.DS ---
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 Getting transfusion every 1-2 weeks He has opted for going home with home hospice. Dr. Vargas was updated over the phone who is his oncologist (4) Leg edema: Code(s): R60.0 - Localized edema Status: Acute Assessment and Plan: He was diuresed with Lasix IV and leg swelling has improved Partly this could be related to atrial fibrillation/flutter he presented with which is also back to sinus rhythm now (5) Fall: Code(s): W19.XXXA - Unspecified fall, initial encounter Status: Acute Assessment and Plan: Most likely mechanical fall PT OT evaluation Now he is going with home hospice (6) Atrial flutter: Code(s): I48.92 - Unspecified atrial flutter Status: Acute Assessment and Plan: Patient wants to be sent home on home hospice. He has been on IV amiodarone which will be switched to oral amiodarone. This was discussed with the patient and family and they are agreeable with the plan (7) Chronic anemia: Code(s): D64.9 - Anemia, unspecified Status: Acute Assessment and Plan: Hemoglobin on admission was 6.4 and was transfused PRBC with appropriate rise He has been transfusion dependent due to his underlying MDS However, Plan is to send the patient home on hospice. This was discussed with Dr. Vargas which his primary oncologist (8) Prostate cancer: Code(s): C61 - Malignant neoplasm of prostate Status: Acute Assessment and Plan: Complicates the management of AFib (9) Breast cancer in male: Code(s): C50.929 - Malignant neoplasm of unspecified site of unspecified male breast Status: Acute Assessment and Plan: Patient follows up with Hematology as outpatient DS: Summary Hospital Course Hospital Course: See above Patient presented with productive cough bilateral ankle swelling underlying NHL receiving blood transfusion every other week. Noted to have atrial flutter with rapid ventricular rate on admission treated with IV amiodarone and Zosyn as an antibiotic. He was also diuresed with IV Lasix family and patient opted to go home with home hospice which is arranged during the hospital stay. His regular medications were continued at discharge any amiodarone oral was continued and also course of antibiotic with Augmentin was prescribed at the time of discharge to treat his aspiration pneumonia. Cardiology was also consulted during the hospital stay. Time Spent with Patient Time attestation: Total time spent providing and/or coordinating discharge services: 50 minutes Exam Narrative: Const: General: Comfortable, not in acute distress HENMT: Mouth: Yes moist mucous membranes Eyes: Sclera: sclerae normal Neck: Neck: supple, nontender Resp: Auscultation: crackles, rales and rhonchi Cardio: Rate: regular rate and rhythm GI: Soft, non-distended Skin: General skin exam: normal color, no rash Neuro: Speech: normal speech Motor exam (neuro): 5/5 motor strength present throughout and Normal motor muscle tone present throughout Sensory Exam: normal sensation Extre
--- NOTE | 2021-11-11 19:34 | ECHO_ITS ---
Patient Info Name: Otis Morales Age: 86 years : 1935 Gender: Male Ht: 68 in Wt: 158 lbs BSA: 1.86 m2 HR: 88 bpm BP: 122 / 76 mmHg Heart Rhythm: Sinus Rhythm Technical Quality: Fair Exam Date: 11/11/2021 9:58 AM Exam Location: [facility] Patient Status: Outpatient Admit Date: 11/09/2021 Staff Ordering Physician: Tristan Pierce M.A., MD Train Driver: Lexii Bell RDCS Attending Provider: Louis Merrill MD Referring Physician: Jose R LARRY; Exam Type: CA echo doppler color flow Study Info Indications - CHF Complete two-dimensional, color flow and Doppler transthoracic echocardiogram is performed. Summary 1. Complete two-dimensional, color flow and Doppler transthoracic echocardiogram is performed. 2. Left ventricular chamber dimension is normal. 3. There is mild concentric increased left ventricular wall thickness. 4. Left ventricular systolic function is normal, estimated at 55-60%. 5. Left atrial chamber dimension is mildly enlarged. 6. There is mild aortic valve sclerosis. 7. There is trace mitral valve regurgitation. Left Ventricle Left ventricular chamber dimension is normal. Left ventricular systolic function is normal, estimated at 55-60%. There is mild concentric increased left ventricular wall thickness. The left ventricular diastolic function is grade I diastolic dysfunction. Right Ventricle Right ventricular chamber dimension is normal. Left Atria Left atrial chamber dimension is mildly enlarged. Right Atria Right atrial chamber dimension is normal. Aortic Valve The aortic valve is trileaflet. There is mild aortic valve sclerosis. Pulmonic Valve The pulmonic valve is normal. Mitral Valve The mitral valve has thickened leaflets. There is trace mitral valve regurgitation. Tricuspid Valve The tricuspid valve leaflets are normal. Pericardium/Pleural The pericardium appears normal. Aorta The aortic root size at the sinus of Valsalva is normal. Left Ventricular Outflow Tract Name Value Normal LVOT 2D LVOT Diameter 2.0 cm LVOT Doppler LVOT Peak Gradient 4 mmHg LVOT Mean Gradient 2 mmHg LVOT VTI 16 cm LVOT VTI/AV VTI Ratio 0.7 LVOT Stroke Volume 50 ml LVOT CO 4.3 l/min LVOT CI 2.3 l/min/m2 Pulmonic Valve Name Value Normal RVOT Doppler RVOT Peak Gradient 2 mmHg PV Doppler PV Peak Gradient 3 mmHg Mitral Valve Name Value Normal ---
[2021-11-13 00:27] LABS: Pneumococcal Antigen Urine Not Detected (Not Detected)
== END 2021-11-11 16:01 | disposition hospice, home (50) ==
LOC: ANHED 20:05 → ANHIMU 21:09
PROVIDERS: Admitting Provider Internal Medicine; Emergency Provider Nurse Practitioner Family; PCP Internal Medicine; Visit Provider Internal Medicine
DX: C85.90 Non-Hodgkin lymphoma, unspecified, unspecified site (principal); D64.9 Anemia, unspecified; R29.6 Repeated falls; R60.0 Localized edema; W19.XXXA Unspecified fall, initial encounter; R09.89 Other specified symptoms and signs involving the circulatory and respiratory systems; I48.92 Unspecified atrial flutter; C61 Malignant neoplasm of prostate; C50.929 Malignant neoplasm of unspecified site of unspecified male breast; E11.39 Type 2 diabetes mellitus with other diabetic ophthalmic complication; E78.5 Hyperlipidemia, unspecified; Z85.3 Personal history of malignant neoplasm of breast; Z87.891 Personal history of nicotine dependence; Z79.84 Long term (current) use of oral hypoglycemic drugs; Z66 Do not resuscitate
CPT/HCPCS: 36415; 36430; 70450; 71046; 71275; 80053; 80299; 82607; 82746; 82948; 83880; 84443; 84484; 84550; 85014; 85018; 85025; 85055; 85610; 85730; 86140; 86850; 86900; 86901; 86920; 87040; 87899; 92610; 93005; 93306; 94640; 96365; 96366; 96367; 96368; 96375; 96376; 99285; A9270; G0378; J0282; J1644; J1940; J2543; J3480; J7040; J7050; J7515; P9016; Q9967